=== PATIENT | male | born 1955 | race Caucasian/White ===

== ENCOUNTER 2016-09-30 12:57 | Inpatient (IN) ==
[2016-09-30 14:05] LABS: Basophils # 0.1 K/mcL (0.0-0.2); Basophils % 0.9 %; Eosinophils # 0.1 K/mcL (0.0-0.6); Eosinophils % 0.8 %; Hematocrit 49.1 % (37.5-50.1); Hemoglobin 16.1 g/dL (12.9-16.9); Immature Granulocytes % 0.1 % (0-4); Lymphocytes # 1.5 K/mcL (0.6-4.6); Lymphocytes % 19.1 %; Mean Corpuscular HGB Conc 32.8 g/dL (31.6-35.5); Mean Corpuscular Hemoglobin 28.9 pg (28.0-33.3); Mean Corpuscular Volume 88.2 fL (83.0-100.0); Mean Platelet Volume 10.3 fL (9.4-12.4); Monocytes # 0.4 K/mcL (0.0-1.3); Monocytes % 5.3 %; Neutrophils # 5.9 K/mcL (1.6-8.9); Platelet Count 215 K/mcL (140-400); Red Blood Count 5.57 M/mcL (4.19-5.50); Red Cell Distribution Width 12.7 % (11.5-14.5); Segmented Neutrophils % 73.8 %
[2016-09-30 14:08] LABS: INR 1.2; Prothrombin Time 12.5 Seconds (9.4-12.1)
[2016-09-30 14:11] LABS: Activated Partial Thrombo Time 37.5 Seconds (26.0-36.0)
[2016-09-30 14:15] LABS: BUN/Creatinine Ratio 13 (6-26); Blood Urea Nitrogen 12 mg/dL (8-26); Calcium 9.3 mg/dL (8.6-10.8); Carbon Dioxide 24 mEq/L (19-29); Chloride 104 mEq/L (98-109); Glucose 113 mg/dL (70-99); Osmolality,Calculated 287 (280-300); Potassium 4.4 mEq/L (3.5-4.5); Sodium 138 mEq/L (136-145); eGFR For African Americans > 60 (> 60); eGFR For Non-African Americans > 60 (> 60)
--- NOTE | 2016-09-30 14:53 | Emergency Department Note ---
Disposition Clinical Impression: NSTEMI (non-ST elevated myocardial infarction) Disposition: Admitted As Inpatient Referrals: NO,PCP [Primary Care Provider] - Forms: ED Satisfaction Letter Chest Pain HPI - General Chief Complaint: ED Chest Pain Stated Complaint: chest pain Time Seen by Provider: 09/30/16 14:43 Source: patient Limitations: no limitations Vital Signs Reviewed: Yes Nursing Notes Reviewed: Yes - History of Present Illness HPI Narrative: Patient presents for complaint of chest pain started last night. She describes pains pressure does not radiate. Patient was seen at outside hospital and he was told that he had an elevated troponin and they want him transferred to [facility]. Patient did not want to go the [facility] so he signed himself out and comes to facility for further evaluation. Patient is currently chest pain-free denies shortness of breath. Severity scale (1-10): 6 - Related Data Home Medications Medication Instructions Recorded Confirmed Aspirin [Lo-Dose Aspirin EC] 81 mg PO DAILY 07/07/16 07/07/16 [place]-3/Dha/Epa/Fish Oil [Fish Oil 2 each PO BID 07/07/16 07/07/16 1,000 mg Softgel] Previous Rx's Medication Instructions Recorded Omeprazole 20 mg PO DAILY #30 tablet. 07/08/16 Allergies Allergy/AdvReac Type Severity Reaction Status Date / Time No Known Allergies Allergy Verified 09/30/16 13:02 All systems ED: reviewed and negative except as stated. Chest Pain PMH - Past Medical History Medical history: Reports: coronary artery disease Psychiatric history: Reports: no psych history - Social History Smoking Status: Current every day smoker Alcohol use: Reports: none Drug use: Reports: none Physical Exam - General Limitations: no limitations General appearance: alert - Head Head exam: atraumatic, normocephalic, normal inspection - Eye Eye exam: Present: normal appearance, PERRL, EOMI - ENT ENT exam: normal exam, normal oropharynx, mucous membranes moist - Neck Neck exam: Present: normal inspection, full ROM, trachea midline - Chest Chest inspection: Present: normal inspection, symmetric chest wall rise - Respiratory Respiratory exam: Present: normal lung sounds bilaterally - Cardiovascular Cardiovascular exam: Present: regular rate, normal rhythm, normal heart sounds - Abdominal Exam Abdominal exam: Present: soft, Non-Tender. Absent: tenderness, distention, guarding, rebound, rigidity - Extremities Exam Extremities exam: Present: normal inspection, full ROM. Absent: tenderness, pedal edema - Expanded Lower Extremity Exam Hip/Pelvis exam: Present: normal inspection, full ROM - Back Exam Back exam: Present: normal inspection, full ROM. Absent: tenderness - Neurological Exam Neurological exam: Present: alert, oriented X3 - Psychiatric Psychiatric exam: Present: normal affect, normal mood - Skin Skin exam: Present: warm, dry, intact, normal color Course Vital Signs Temperature 97.5 F L 09/30/16 12:58 Pulse Rate 74 09/30/16 12:58 Respiratory Rate 18 09/30/16 12:58 Blood Pressure 138/92 09/30/16 12:58 O2 Sat by Pulse Oximetry 96 09/30/16 12:58 Temperature 97.5 F L 09/30/16 12:58 Pulse Rate 74 09/30/16 12:58 Respiratory Rate 18 09/30/16 12:58 Blood Pressure 138/92 09/30/16 12:58 O2 Sat by Pulse Oximetry 96 09/30/16 12:58 Oxygen Delivery Oxygen Delivery Room Air Chest Pain - Differential Diagnosis Likely: pneumothorax, st elevation myocardial infraction, chest pain - Lab Data Lab results reviewed: Yes I reviewed the patient's lab results. Result diagrams: 09/30/16 13:49 09/30/16 13:49 Lab Results 09/30/16 09/30/16 09/30/16 Range/Units 13:49 13:49 13:49 WBC 8.0 (4.3-11.1) K/mcL RBC 5.57 H (4.19-5.50) M/mcL Hgb 16.1 (12.9-16.9) g/dL Hct 49.1 (37.5-50.1) % MCV 88.2 (83.0-100.0) fL MCH 28.9 (28.0-33.3) pg MCHC 32.8 (31.6-35.5) g/dL RDW 12.7 (11.5-14.5) % Plt Count 215 (140-400) K/mcL MPV 10.3 (9.4-12.4) fL Immature Gran % 0.1 (0-4) % Seg Neutrophils % 73.8 % Lymphocytes % 19.1 % Monocytes % 5.3 % Eosinophils % 0.8 % Basophils % 0.9 % Neutrophils # 5.9 (1.6-8.9) K/mcL Lymphocytes # 1.5 (0.6-4.6) K/mcL Monocytes # 0.4 (0.0-1.3) K/mcL Eosinophils # 0.1 (0.0-0.6) K/mcL Basophils # 0.1 (0.0-0.2) K/mcL PT 12.5 H (9.4-12.1) Seconds INR 1.2 APTT 37.5 H (26.0-36.0) Seconds Sodium 138 (136-145) mEq/L Potassium 4.4 (3.5-4.5) mEq/L Chloride 104 (98-109) mEq/L Carbon Dioxide 24 (19-29) mEq/L BUN 12 (8-26) mg/dL Creatinine 0.89 (0.72-1.25) mg/dL Est GFR ( Amer) > 60 (> 60) Est GFR (Non-Af Amer) > 60 (> 60) BUN/Creatinine Ratio 13 (6-26) Glucose 113 H (70-99) mg/dL Calculated Osmolality 287 (280-300) Calcium 9.3 (8.6-10.8) mg/dL Troponin I (0-0.03) ng/mL 09/30/16 Range/Units 13:49 WBC (4.3-11.1) K/mcL RBC (4.19-5.50) M/mcL Hgb (12.9-16.9) g/dL Hct (37.5-50.1) % MCV (83.0-100.0) fL MCH (28.0-33.3) pg MCHC (31.6-35.5) g/dL RDW (11.5-14.5) % Plt Count (140-400) K/mcL MPV (9.4-12.4) fL Immature Gran % (0-4) % Seg Neutrophils % % Lymphocytes % % Monocytes % % Eosinophils % % Basophils % % Neutrophils # (1.6-8.9) K/mcL Lymphocytes # (0.6-4.6) K/mcL Monocytes # (0.0-1.3) K/mcL Eosinophils # (0.0-0.6) K/mcL Basophils # (0.0-0.2) K/mcL PT (9.4-12.1) Seconds INR APTT (26.0-36.0) Seconds Sodium (136-145) mEq/L Potassium (3.5-4.5) mEq/L Chloride (98-109) mEq/L Carbon Dioxide (19-29) mEq/L BUN (8-26) mg/dL Creatinine (0.72-1.25) mg/dL Est GFR ( Amer) (> 60) Est GFR (Non-Af Amer) (> 60) BUN/Creatinine Ratio (6-26) Glucose (70-99) mg/dL Calculated Osmolality (280-300) Calcium (8.6-10.8) mg/dL Troponin I 0.58 H* (0-0.03) ng/mL - EKG Data EKG attestation: Yes I reviewed and interpreted this EKG. EKG shows normal: sinus rhythm Rate: normal Rhythm: NSR Critical Care Time Total Critical Care Time: 30 Attestation: Critical care performed: Time is exclusive of separately billable procedures. Time includes: direct patient care, patient reassessment, coordination of patient care, interpretation of data (laboratory data, radiology data, and respiratory data), review of patient's medical records, medical consultation and documentation of patient care. Procedures included in critical care time: Procedures excluded from critical care time:
[2016-09-30] MEDS ORDERED: *HR* Enoxaparin 100 MG/ML SYRINGE SQ STA (15:07)
[2016-09-30] MEDS ORDERED: Ondansetron 4 MG/2 ML VIAL IVP PRN (17:39)
[2016-09-30] MEDS ORDERED: Naloxone 0.4 MG/ML INJ IVP PRN (17:39)
--- NOTE | 2016-09-30 20:26 | Internal Med History&Physical ---
<Diana Payton - Last Filed: 10/01/16 10:36> Date of Encounter: 10/01/16 Time of Encounter: 19:35 Assessment and Plan (1) NSTEMI (non-ST elevated myocardial infarction) Current visit: Yes Status: Acute Chest pain onset yesterday a.m prior to work, approx 0700. Pt took NTG sl which relieved pain for the rest of the day, even with intentional exertion. 8/10 chest heaviness without radiation awakened pt this a.m at 0300. Pain at that time was intermittent, lasting about 2 minutes, until at about 0600 it became constant and pt called EMS. He was at an outlying hospital and was told he would have to be transferred to [facility]. 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 He had taken his own ASA 81 mg at home and was given Lovenox 100mg subq prior to leaving other hospital. Troponin on arrival was 0.58ng/dl and EKG was NSR. He has been pain free since arrival. He has not been taking his anticoagulant due to cost and has been taking an ASA 81mg daily instead. Echo and stress both done in 06/2016; LVEF 60-65% and mild LV diastolic dysfunction. Continuous cardiac monitoring Consult cardiology Metoprolol 12.5mg po bid Lovenox 100mg/kg sq q12 h ASA 81mg po daily Simvastatin 20mg po qhs Morphine 2mg IV q 4h prn chest pain Load Plavix 300mg po if significant rise in Troponin or pt begins having pain per Dr Trimble. (2) Elevated troponin Current visit: Yes Status: Acute Initial troponin 0.58ng/dl. Will trend. (3) CAD (coronary artery disease) Current visit: No Status: Chronic Plan same as above Qualifiers: Coronary Disease-Associated Artery/Lesion type: pra[place] band artery [place] vs. transplanted heart: prairie band heart Associated angina: with stable angina Qualified Code(s): I25.118 - Atherosclerotic heart disease of prairie band coronary artery with other forms of angina pectoris (4) Chest pain Current visit: No Status: Acute Pt has been pain free since arrival. Plan as above. Qualifiers: Chest pain type: chest pain due to myocardial ischemia Ischemic chest pain type: stable angina pectoris Qualified Code(s): I20.8 - Other forms of angina pectoris (5) GERD (gastroesophageal reflux disease) Current visit: No Status: Chronic Pt states that he cannot afford to take medication and that he doesn't really like to take pills if he doesn't have to. He states that he has controlled his GERD symptoms with lifestyle modifications and diet. He does not overeat and does not eat after 7pm. Maalox 30mg po qhs heartburn Qualifiers: Esophagitis presence: esophagitis presence not specified Qualified Code(s) : K21.9 - Gastro-esophageal reflux disease without esophagitis (6) Tobacco abuse Current visit: Yes Status: Chronic Pt states that he is still smoking daily, approx 1 PPD for 20 years. He is not interested in a patch or smoking cessation education. Internal Medicine - H&P: HPI Chief complaint: elevated troponin NSTEMI Admitted From: Home Plans for Post Hospital Care: Home History of present illness: Mr. Huber is a 61 year old male with a history of NE, stents x 2, GERD, CAD who presented to [facility] in [place] with c/o intermittent chest pain for 1 day, worse since 299 today. The pain awakened him from sleep. Pt took his own ASA and NTG sl that relieved his pain. Pt was told that he would have to go to [facility] for cath, pt refused because he wanted to come here. He signed out AMA and came to this ER instead. His troponin was 0.58ng/dl and his EKG showed NSR. He was given Lovenox 100mg subq at [facility]. At onset of chest pain, he rated it 8/10 and described it as a pressure that was located equally on R and L sides of chest. He denies any SOB, diaphoresis, n/v, but did say the pain radiated to dominic jaws. He is pain free currently. Pt had a stress and echo in June. LEVF 60-65% and LV diastolic dysfunction. I spoke with Dr. Trimble who is aware of his condition and requested that I start ASA, Lovenox, a statin, and a beta margarita, per ACS treatment. He also suggests that if the patient has a significant increase in troponin or starts having pain again, to call him and load with Plavix 300mg po. Past Med Surg Social Fam HX - Past Medical History Medical history: coronary artery disease Psychiatric history: no psych history - Social History Smoking Status: Current every day smoker Smokeless Tobacco Status: No Alcohol use: none Drug use: none - Family History Father Adopted: No Family Member Ethnicity: Non- Living Status: Hx Family Cardiac Disorders: Yes Hx Family Respiratory Disorders: No Hx Family Cancer: No Hx Family GI Disorders: No Hx Family Endocrine Disorder: No Hx Family Neuromuscular Disorders: No Hx Family Neurologic Disorders: Yes Hx Family HEENT Disorders: No Hx Family Autoimmune Disorders: No Internal Medicine - H&P: Meds Aspirin [Lo-Dose Aspirin EC] 81 mg PO DAILY 07/07/16 [History] Clopidogrel Bisulfate [Plavix] 75 mg PO DAILY #90 tablet 10/01/16 [Rx] Allergies No Known Allergies Allergy (Verified 09/30/16 13:02) All Systems PM: A 10-system review of systems was performed and is negative for pertinent findings except as documented above in the HPI. - Constitutional Constitutional: no chills, no fatigue, no fever(s), no falls, no weakness - Cardiovascular Cardiovascular ROS IM: chest pain, no diaphoresis, no edema, no irregular heart rhythm, no lightheadedness, no palpitations - Respiratory Respiratory: no cough, no dyspnea, no dyspnea on exertion, no wheezing, no pain on inspiration, no chest congestion, no excessive phlegm production - Gastrointestinal Gastrointestinal: no diarrhea, no nausea, no vomiting - Musculoskeletal Musculoskeletal ROS IM: no muscle weakness, no myalgias, no numbness, no tingling - Constitutional Vitals: Temp Pulse Resp BP Pulse Ox 0 F L 94 20 142/97 95 09/30/16 17:06 09/30/16 18:02 09/30/16 18:02 09/30/16 18:02 09/30/16 18:02 General appearance: Present: cooperative, A&O X 3, pleasant, no acute distress, answers questions appropriately - ENT ENT exam: Present: mucous membranes dry - Neck Neck exam general surgery: Present: full ROM. Absent: lymphadenopathy, tenderness - Respiratory Respiratory exam: Present: CTAB. Absent: chest wall tenderness, decreased breath sounds, rales, rhonchi, wheezes - Cardiovascular Cardiovascular exam: Present: RRR, +S1, +S2. Absent: tachycardia - GI/Abdominal GI/Abdominal exam: Present: firm, normal bowel sounds. Absent: tenderness - Extremities Exam Extremities exam: Present: full ROM, normal capillary refill, normal inspection , warm, radial pulses palpable and symetrical. Absent: cyanotic, pedal edema, tenderness Additional comments: Pt has dominic +2 pedal pulses without pedal or ankle edema. - Neurological Exam Neurological exam: Present: alert, oriented X3, no focal deficits, strengths equal and symetr throughout Internal Med - H&P Results - Labs CBC & Chem 7: 10/01/16 05:48 10/01/16 05:48 - EKG Data Prior EKG available for review: no Interpretation IM: normal EKG EKG comments: 09/30/16 20:47 NSR rate 71 WI 166ms QRS 100ms QT/QTc 359/381ms <Fish Greer - Last Filed: 10/02/16 00:59> Internal Medicine - H&P: HPI History of present illness: Mr. Huber is a 61 year old male All Systems PM: A 10-system review of systems was performed and is negative for pertinent findings except as documented above in the HPI. - Constitutional Vitals: Temp Pulse Resp BP Pulse Ox 98 F 76 16 117/79 96 10/01/16 22:00 10/01/16 22:00 10/01/16 22:00 10/01/16 22:00 10/01/16 22:00 Internal Med - H&P Results - Labs CBC & Chem 7: 10/01/16 05:48 10/01/16 05:48 - Attending Attestation I examined this patient and my medical decision-making was reviewed with the Advanced Practice Provider. I agree with the documented findings, disposition and treatment plan as described except to the extent set forth below. The patient presented to the hospital with typical chest pain. Troponin was elevated. EKG showed no ST elevations. Cardiology was consulted. We will monitor the patient on telemetry. Trend troponin. We will keep him at nothing by mouth for cardiac catheterization.
[2016-09-30] MEDS ORDERED: *HR* Morphine 2 MG/ML SYRINGE IVP PRN (21:01)
[2016-09-30] MEDS ORDERED: Mag Hydrox/Al Hydrox/Simeth 30 ML UDC PO PRN (21:05)
[2016-10-01] MEDS ORDERED: *HR* Enoxaparin 100 MG/ML SYRINGE SQ SCH (00:01)
[2016-10-01] MEDS: Acetaminophen 325 MG TABLET PO PRN ×2 (04:27→10:59)
[2016-10-01 06:10] LABS: Basophils # 0.1 K/mcL (0.0-0.2); Eosinophils # 0.1 K/mcL (0.0-0.6); Eosinophils % 1.8 %; Hematocrit 45.3 % (37.5-50.1); Hemoglobin 15.1 g/dL (12.9-16.9); Immature Granulocytes % 0.3 % (0-4); Lymphocytes # 1.6 K/mcL (0.6-4.6); Lymphocytes % 21.4 %; Mean Corpuscular HGB Conc 33.3 g/dL (31.6-35.5); Mean Corpuscular Hemoglobin 29.8 pg (28.0-33.3); Mean Corpuscular Volume 89.5 fL (83.0-100.0); Mean Platelet Volume 10.7 fL (9.4-12.4); Monocytes # 0.6 K/mcL (0.0-1.3); Monocytes % 7.4 %; Neutrophils # 5.2 K/mcL (1.6-8.9); Platelet Count 182 K/mcL (140-400); Red Blood Count 5.06 M/mcL (4.19-5.50); Red Cell Distribution Width 12.7 % (11.5-14.5); Segmented Neutrophils % 68.1 %
[2016-10-01 06:29] LABS: BUN/Creatinine Ratio 17 (6-26); Blood Urea Nitrogen 16 mg/dL (8-26); Carbon Dioxide 23 mEq/L (19-29); Chloride 104 mEq/L (98-109); Chol/HDL Ratio 9.3 (0-4.9); Cholesterol 222 mg/dL (< 200); Glucose 103 mg/dL (70-99); HDL Cholesterol 24 mg/dL (40-59); LDL Cholesterol,Calculated 155 mg/dL (0-99); Magnesium 1.6 mg/dL (1.6-2.6); Osmolality,Calculated 285 (280-300); Potassium 4.3 mEq/L (3.5-4.5); Sodium 137 mEq/L (136-145); Triglycerides 215 mg/dL (< 150); eGFR For African Americans > 60 (> 60); eGFR For Non-African Americans > 60 (> 60)
[2016-10-01] MEDS: Aspirin 81 MG TAB.CHEW PO SCH ×2 (09:22→11:01)
[2016-10-01] MEDS ORDERED: Heparin 1,000 UNITS/500 mL NS 500 ML ONE (10:41)
[2016-10-01] MEDS ORDERED: *HR* Heparin 10,000 UNIT/10 ML VIAL ONE (10:41)
[2016-10-01] MEDS ORDERED: 0.9 % Sodium Chloride 2,000 ML ONE (10:41)
[2016-10-01] MEDS ORDERED: Nitroglycerin 1,000 MCG/10 ML VIAL IV ONE (10:43)
[2016-10-01] MEDS ORDERED: *HR* Midazolam HCl 2 MG/2 ML VIAL ONE (11:36)
[2016-10-01] MEDS ORDERED: *HR* FentaNYL (PF) 100 MCG/2 ML VIAL ONE (11:36)
--- NOTE | 2016-10-01 11:43 | Pre-Sedation Evaluation ---
Pre-sedation evaluation - Pre-sedation checklist Date of procedure: 10/01/16 Procedure: heart cath Recent Vitals: Last Vital Signs Temp 98.3 F 10/01/16 07:00 Pulse 64 10/01/16 07:00 Resp 16 10/01/16 07:00 BP 139/90 10/01/16 07:00 Pulse Ox 98 10/01/16 11:02 H&P (including ROS) documented in medical record: Yes Previous reaction to sedatives/anesthetics: No Dietary Status: No solid food in preceding 4 hrs and no liquid in preceding 2 hrs Dentition: No loose teeth or bridges Possible difficult airway: No ASA Classification *see protocol: CLASS II-Mild systemic disease Plan of Care: Pt appropriate candidate for procedure/moderate/conscious sedation , Risks/benefits of procedure/sedation discussed w/ patient/family, If not NPO; Risk of intake outweiged by necessity to perform procedure
--- NOTE | 2016-10-01 11:49 | Cardiology Consult Note ---
Date of Encounter: 10/01/16 Time of Encounter: 09:00 Assessment and Plan (1) Acute coronary syndrome Current Visit: Yes Status: Acute Per cardiology: -Patient with known history of CAD with multiple coronary stents. (IMMI) -Patient with chest pain and elevated troponins of 0.58 and 3.97 on 09/30/16, troponins 10/01/16 8.73. (MIMI) -ECG on admission to [facility] 09/30/[address] elevated in V3, V4, and V5. ECG with sinus bradycardia with T wave inversion. (MIMI) -Patient currently on asa, plavix, beta margarita, statin, and lovenox. (MIMI) -Patient currently chest pain free. Will apply nasal cannula oxygen. (MIMI) -Urgent Left heart cath. Discussed with patient risks versus benefit of left heart cath. Patient agreeable to cath. 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 ( MIMI) Discussion w patient/family: The assessment and plan as outlined above was discussed with the patient who expressed understanding and agreement. All questions were answered. Thank you for involving us in the care of your patient. Please call with any questions. Discussed and reviewed with . History of Present Illness Consult date: 09/30/16 Requesting physician: Diana Payton Consult reason: Chest pain, elevated troponin Chief complaint: chest pain History of present illness: Mr. Huber is a 61 year old male with a known history of CAD with multiple coronary stents. Patient states chest pain started on Thursday when he was driving to work. Patient states he went home and took a nitrogylcerin sublingual with no resolution of symptoms. Patient states pain went away on its own. On Thursday morning at 0300 patient was awaken from sleep with chest pain. Patient states it was aching in nature and would rate the pain at that time 8/ 10. Patient states at that time he took another sublingual nitroglycerin without resolution of symptoms. Patient states pain would get worse if he got up and walked around. Patient states this pain is the same as he has had in the past when hes had his previous coronary stents. Patient presented to [facility] and was recommended to stay, but patient signed out AMA to come to [facility]. Patient currently chest pain free. Patient had recent negative stress test and echocardiogram 06/2016. (MIMI) Past Med Surg Social Fam HX - Past Medical History Medical history: coronary artery disease Psychiatric history: no psych history - Social History Smoking Status: Current every day smoker Smokeless Tobacco Status: No Alcohol use: none Drug use: none - Family History Father Adopted: No Family Member Ethnicity: Non- Living Status: Hx Family Cardiac Disorders: Yes Hx Family Respiratory Disorders: No Hx Family Cancer: No Hx Family GI Disorders: No Hx Family Endocrine Disorder: No Hx Family Neuromuscular Disorders: No Hx Family Neurologic Disorders: Yes Hx Family HEENT Disorders: No Hx Family Autoimmune Disorders: No Medications and Allergies Aspirin [Lo-Dose Aspirin EC] 81 mg PO DAILY 07/07/16 [History] Allergies No Known Allergies Allergy (Verified 09/30/16 13:02) All Systems Review: A 10-system review of systems was performed and is negative for pertinent findings except as documented above in the HPI. - Cardiovascular Cardiovascular: chest pain at rest, chest pain with exertion Physical Examination Vital Signs, Last 4 Hours Pulse Ox 10/01/16 11:02 98 Vital Signs Temp Pulse Resp BP Pulse Ox 10/01/16 11:02 98 10/01/16 07:00 98.3 F 64 16 139/90 97 10/01/16 04:00 98.1 F 66 16 135/89 94 L 10/01/16 00:00 98.4 F 67 16 126/82 94 L 09/30/16 20:00 97.6 F 65 16 117/77 95 09/30/16 18:02 94 20 142/97 95 09/30/16 17:06 0 F L 18 121/82 09/30/16 12:58 97.5 F L 74 18 138/92 96 Intake and Output 09/30/16 10/01/16 10/01/16 23:59 07:59 15:59 Other: Weight 83.1 kg Patient Weight 10/01/16 23:59 Weight 83.1 kg General: Conversant, No Apparent Distress HEENT: Atraumatic, Normocephaly, Mucus Membranes Moist Neck: No JVD, Normal carotid pulses Cardiac: Reg Rate and Rhythm, Normal S1 and S2, No Murmur Lungs: Normal Breath Sounds, No Wheeze, Rales, Rhonchi Neuro: Alert and responsive, No focal deficits noted Abdomen: Soft, Non-Tender Skin: No rashes noted on visualized skin Musculoskeletal: No Chest Wall Tenderness Extremities: No Clubbing, No Cyanosis, No Edema, Normal Pulses Results 10/01/16 05:48 10/01/16 05:48 - Imaging and Cardiology Chest Xray: report reviewed Cardiac cath: pending - EKG Interpretation EKG results cardiology: personally reviewed, normal ECG, sinus rhythm, other ( ECG from 10/01/16 with sinus bradycardia with T wave inversion. Heart rate 57. ECG reviewed from admission to [facility] with ST elevated in leads V3, V4, V5. Telemtry reviewed with average heart rate 63, sinus rhythm. One triplet PVC noted. Occasional PVCs and PACs. Minimum heart rate 58 noted at 2333.) Consult Discharge Plan - Plan Referrals: NO,PCP [Primary Care Provider] -
[2016-10-01] MEDS ORDERED: *HR* Bivalirudin 250 MG VIAL IVC ONE (11:52)
[2016-10-01] MEDS ORDERED: Nitroglycerin Spray 4.9 GM BOTTLE ONE (12:27)
[2016-10-01] MEDS ORDERED: *HR* Morphine 2 MG/ML SYRINGE ONE (12:30)
[2016-10-01] MEDS ORDERED: Nitroglycerin 0.4 MG TAB.SUBL SL PRN (12:33)
[2016-10-01] MEDS ORDERED: Nitroglycerin 25 MG/250 ML INFUS..BTL IVC SCH (12:45)
[2016-10-01] MEDS ORDERED: 0.9 % Sodium Chloride 1,000 ML IVC SCH (12:45)
--- NOTE | 2016-10-01 12:54 | Invasive Diagnostic Lab ---
Name: Juan José Huber Date of Study: 10/01/2016 Date: 1955 Ht: 185.0 cm /72.8 in Medical Record#: [id number] Age: 61 Wt: 83. kg / 182.98 lb Account/Order#: [id number] Gender: Male BSA: 2.07 Order #: [id number] Fluoro Dose: 1393 mGy BMI: 24.25 Procedure Physician: Nehemias Harrington MD Referring MD: Referring MD: Procedures Performed: LEFT HEART CATH Stent w/ PTCA Single Major Vessel Stent w/ PTCA Single Major Vessel Indications: Non-Stemi Impressions: There is severe three vessel coronary artery disease. The left ventricle is normal and has normal contractility EF 50% Stent placed from a prior procedure in the Proximal LAD is is patent. There is a previous stent in 1st Marginal with severe in-stent stenosis that was intervened on. Patient had successful PTCA/Drug-Eluting Stent placement in the mid LAD. Patient had successful PTCA/Drug-Eluting Stent placement in the OM. Recommendations: Optimal medical therapy of patient's disease. Aggressive risk factor modification. Patient being referred for cardiac rehab. History/Risk Factors: CAD GERD Current/Recent Smoker Prior MT Previous PCI Procedure Access obtained in the right Femoral artery by percutaneous puncture Patient had successful PTCA/Drug-Eluting Stent placement in the mid LAD. Patient had successful PTCA/Drug-Eluting Stent placement in the OM. Complications: None Contrast: Isovue 262ml Closure Device: Perclose ProGlide Hemodynamics: Pressures Site Systolic/ A Wave Diastolic/ V Wave End Diastolic/ Mean HR LV 109 -5 6 57 LV 135 47 77 66 AO 99 70 84 53 AO 116 65 86 62 AO 106 60 80 58 AO 107 60 79 56 AO 118 68 89 58 AO 140 77 103 56 LV Ventriculography Ejection Method: LV Gram Ejection Fraction: 50% Wall Motion: AZAR Anterobasal Normal Anterolateral Normal Apical: Severe Hypokinesis Inferoapical Normal Inferobasal Normal Coronary Dominance: right Lesion Findings/Interventions * Left Main Coronary Artery The LMCA is angiographically free of disease. * Left Anterior Descending There is a 24 mm long, 90% stenosis in the Mid LAD. The lesion has a LIONEL flow of 3 and has thrombus present. An intervention was performed on the Mid LAD with a final stenosis of 0%. There were no lesion complications. The final LIONEL flow was 3. * Circumflex There is a 85% stenosis in the Mid Circumflex. The lesion has a LIONEL flow of 3. There is a 28 mm long, 95% in-stent restenosis in the 1st Marginal. The lesion has a LIONEL flow of 3. An intervention was performed on the 1st Marginal with a final stenosis of 0%. There were no lesion complications. The final LIONEL flow was 3. * Right Coronary Artery There is a 100% stenosis in the Proximal RCA. The lesion has a LIONEL flow of 0 and has collaterals which feed from left to right. Interventional Device(s) Vessel Segment Type Name Diameter (mm) Length (mm) Mid LAD balloon Emerge Monorail 2 12 Mid LAD drug-eluting stent Synergy 2.5 24 Mid LAD balloon NC Emerge 2.75 15 1st Marginal balloon Emerge Monorail 3 15 1st Marginal drug-eluting stent Synergy 3.5 28 1st Marginal balloon NC Emerge 3.5 20 Updated by RT Jossue (R) on 10/01/2016 12:48:16 PM Nehemias Harrington MD electronically signed on 10/01/2016 12:50:40 PM with status of Final
--- NOTE | 2016-10-01 12:55 | Invasive Diagnostic Lab Proc ---
Name: Juan José Huber Date of Study: 10/01/2016 Date: 1955 Ht: 72.8in Medical Record#: [id number] Age: 61 Wt: 182.98lb Gender: Male BSA: 2.07 Order #: [id number] BMI: 24.25 Physicians Procedure Physician: Nehemias Harrington MD Referring MD: Referring MD: Staff Name Position Time In Ofelia Rodriguez RT (R) Monitor 11:32 AM Enrico Elizabeth RT (R) Scrub 11:32 AM Justine Daniels RN Knot Bumper 11:32 AM Indications Indication Non-Stemi Procedures Performed Procedure L HRT ARTERY/VENTRICLE ANGIO PRQ CARD SHERRI STENT W/ANGIO 1 VSL PRQ CARD SHERRI STENT W/ANGIO 1 VSL Pre-Procedure Checklist Informed consent is complete signed and on chart. H\\T\\P is on chart. ID band is on and ID verified with patient. Patient NPO for procedure The procedure was described for the patient and questions were answered. Blood Pressure: 139/90 ECG is on chart. Rhythm: NSR Plan of Care Patient will tolerate the procedure without complications. Adequate level of comfort will be maintained. Hemodynamics will remain stable Patient will recover from procedure without complications. Respiratory function will be maintained. Cardiac rhythm will remain stable. Patient temperature will be maintained. Patient and/or family have verbalized understanding of the procedure. Patient Education Chief Complaint/Reason for Test: Cardiac Cath Developmental Category: Adult (18-64 years) Developmentally Appropriate for Age: Yes Learning Barriers: None Education Needs: Procedure Education Method: Verbal Information Taught: Cardiac Cath Educational Evaluation: Able to repeat information Intravenous Access Time IV Size Location DC'd Fluid/Drip Rate Units RN 11:41 AM 20g 1 /" Patent On Arrival Lt Arm 0.9NaCl ml/hr Allergies NKA No Known Allergies Vital Signs Time BP (mmHg) HR (bpm) O2 Sat. RR (bpm) LOC 11:42 AM 139 / 90 64 97 % 16 5 = Fully awake and oriented or at pre-proc level 11:48 AM / % 4 = Oriented but drowsy 11:48 AM / % 4 = Oriented but drowsy 12:03 PM / % 4 = Oriented but drowsy 12:18 PM / % 4 = Oriented but drowsy 11:39 AM 129 / 85 56 95 % 11 11:44 AM 118 / 84 63 96 % 16 11:49 AM 116 / 79 54 92 % 20 11:54 AM 120 / 75 55 92 % 17 11:59 AM 127 / 80 56 92 % 17 12:04 PM 121 / 79 55 93 % 28 12:09 PM 131 / 81 55 94 % 13 12:14 PM 131 / 83 53 95 % 18 12:19 PM 134 / 85 57 94 % 11 12:24 PM 168 / 100 76 92 % 9 12:29 PM 153 / 94 57 90 % 17 12:34 PM 147 / 92 59 93 % 5 12:39 PM 138 / 92 % Procedural Medications Time Medication Dose Units Method Given By 11:40 AM Oxygen 2 L/min nasal cannula JeremiahJustine garcía RN 11:40 AM Versed 1 mg Intravenous Jeremiah, Justine CÁRDENAS 11:40 AM Fentanyl 50 mcg Intravenous Justine Daniels RN 11:49 AM Lidocaine 2% 18 ml Subcutaneous Nehemias Harrington MD 11:59 AM Oxygen 4 L/min nasal cannula Justine Daniels RN 12:00 PM Nitroglycerin 200 mcg Intracoronary Nehemias Harrington MD 12:03 PM Angiomax 0.75mg/kg bolus: 13 ml Intravenous JeremiahJustine garcía RN 12:03 PM Angiomax 1.75mg/kg/hr: 30 ml Intravenous Morris ChapelJustine garcía RN 12:21 PM Versed 1 mg Intravenous JeremiahJustine garcía RN 12:21 PM Fentanyl 50 mcg Intravenous JeremiahJustine garcía RN 12:24 PM Nitroglycerin 200 mcg Intracoronary Nehemias Harrington MD 12:30 PM Nitroglycerin 800 mcg Sublingual [place], Justine CÁRDENAS 12:30 PM Plavix 225 mg Orally Justine Daniels RN 12:31 PM Morphine 2 mg Intravenous JeremiahJustine garcía RN ASA Classification: CLASS II- Mild systemic disease (i.e. well-controlled diabetes, hypertension, asthma, cigarette smoking) Jeovanny Score Preprocedure Postprocedure Activity 2- Moves 4 extremities sustained head lift Activity 2- Moves 4 extremities sustained head lift Circulation 2- SBP +/= 20 points of pre-anesthetic level Circulation 2- SBP +/= 20 points of pre-anesthetic level Consciousness 2- Awake and alert oriented x 3 Consciousness 2- Awake and alert oriented x 3 O2 Saturation 2- Able to maintain O2 satruation of 92% on room air O2 Saturation 2- Able to maintain O2 satruation of 92% on room air Respiratory 2- Able to deep breathe and cough well Respiratory 2- Able to deep breathe and cough well Total Score 10 Total Score 10 Contrast Agent: Isovue Diagnostic Contrast: 262 ml Total Contrast: 262 ml Fluoro Dose: 1393 mGy Procedure Log Time Note Enter By 11:32 AM Elizabeth Weston (R) Position: Scrub Time in: :32 twilson 11:32 AM Physician arrived : twilson 11:32 AM Meet and greet completed twilson 11:32 AM Sign in performed according to hospital policy. twilson 11:32 AM Procedure start : twilson 11:32 AM Justine Daniels RN Position: Knot Bumper Time in: :32 twilson 11:32 AM Pt arrived to label stamper 2 at 11:32 twilson 11:32 AM Ofelia Rodriguez (R) Position: Monitor Time in: :32 twilson 11:35 AM Hair removed from procedure site in procedure lab using clippers. Bilateral groin prepped with Chloraprep by Ofelia Rodriguez (R) then patient draped. Skin intact. twilson 11:38 AM Vitals capture started with the following parameters, Patient=Adult, Interval=5 min, Initial Ipwvwexx=977 mmHg, Deflation Rate=5 mmHg, Cuff placed on Left Leg 11:38 AM CathStat 11:39 AM HR=56 bpm, WEHA=947/85 mmhg, SpO2=95.0 %, Resp=11 B/min 11:40 AM Time: 11:40 Oxygen on at 2 L/min per nasal cannula by Justine Daniels RN twilson 11:40 AM Time: 11:40 Versed 1 mg Intravenous Given by Justine Daniels RN twilson 11:40 AM Time: 11:40 Fentanyl 50 mcg Intravenous Given by Justine Daniels RN twilson 11:44 AM HR=63 bpm, YGLU=405/84 mmhg, SpO2=96.0 %, Resp=16 B/min, Comment=sr 11:45 AM Patient charges- Angio tray pack, Navilyst 3mm J, Pulse Oximetry and ACIST tubing and transducer twilson 11:45 AM Case Delayed no twilson 11:45 AM Pressure channel 1 zeroed. 11:46 AM ASA Class CLASS II- Mild systemic disease (i.e. well-controlled diabetes, hypertension, asthma, cigarette smoking) twilson 11:48 AM Time: 11:48 Patient comfortable and pain free: Yes twilson 11:48 AM Time: 11:48LOC: 4 = Oriented but drowsy twilson 11:48 AM Time out performed according to hospital policy twilson 11:48 AM Pressure channel 1 zeroed. 11:49 AM HR=54 bpm, HTNE=032/79 mmhg, SpO2=92.0 %, Resp=20 B/min, Comment=sr 11:49 AM Pressure channel 1 zeroed. 11:49 AM Recorded ECG: HR=57 Condition=Condition 1 11:49 AM Time: 11:49 18 ml Lidocaine 2% to right groin Subcutaneous Given by Nehemias Harrington MD twilson 11:50 AM Access obtained by percutaneous puncture. 6Fr 10cm Terumo [place] sheath placed in right Femoral artery. [id number] twilson 11:50 AM 5Fr Pigtail catheter inserted over the wire DN twilson 11:51 AM Pressure channel 1 zero failed. 11:51 AM Pressure channel 1 zeroed. 11:51 AM Recorded Pressure: LV, HR=57, Condition=Condition 1 (Left Ventricle) LV 109/-5/6 11:51 AM Catheter selectively placed in left ventricle twilson 11:51 AM Recorded Pressure: LV, Ao, HR=58, Condition=Condition 1 (Left Ventricle) LV 135/47/77, (Aorta) Ao 99/70/84 11:51 AM Wire removed, intact. twilson 11:52 AM Bolus angiogram of left Ventricle complete: 10 ml/sec for a total of 30 mls twilson 11:52 AM Wire reinserted. twilson 11:52 AM Catheter removed twilson 11:52 AM 5Fr FR 4 catheter inserted over the wire DNC twilson 11:53 AM Recorded Pressure: Ao, HR=62, Condition=Condition 1 (Aorta) Ao 116/65/86 11:53 AM RCA angiography performed in multiple views. twilson 11:53 AM Wire reinserted. twilson 11:54 AM HR=55 bpm, AFBV=487/75 mmhg, SpO2=92.0 %, Resp=17 B/min 11:54 AM Lesion found in Proximal RCA. Pre Stenosis: 100 Pre LIONEL Flow: 0: No Flow/No perfusion twilson 11:54 AM Right Coronary, Right Posterior Descending Arteries with Right Posterolateral and Acute Marginal branches with 100 % stenosis. If graft is supplying this area, 0 % stenosis twilson 11:54 AM Catheter removed. twilson 11:54 AM 5Fr FL 4 catheter inserted over the wire [facility] twilson 11:55 AM Wire removed, intact. twilson 11:57 AM Recorded Pressure: Ao, HR=58, Condition=Condition 1 (Aorta) Ao 106/60/80 11:57 AM LCA angiography performed in multiple views. twilson 11:58 AM Recorded Pressure: Ao, HR=56, Condition=Condition 1 (Aorta) Ao 107/60/79 11:58 AM Lesion found in Mid LAD. Pre Stenosis: 90 Pre LIONEL Flow: 3: Complete and Brisk Flow/Perfusion twilson 11:58 AM Coronary Dominance: right twilson 11:59 AM HR=56 bpm, MNFN=473/80 mmhg, SpO2=92.0 %, Resp=17 B/min 11:59 AM Time: 11:59 Oxygen on at 4 L/min per nasal cannula by Justine Daniels RN twilson 11:59 AM Mid/Distal Left Anterior Descending Coronary Artery and diagonal branches with 90% stenosis. If graft is supplying this area, 0 % stenosis twilson 12:00 PM Lesion found in Mid Circumflex. Pre Stenosis: 85 Pre LIONEL Flow: 3: Complete and Brisk Flow/Perfusion twilson 12:00 PM Time: 12:00 Nitroglycerin 200 mcg Intracoronary Given by Nehemias Harrington MD twilson 12:03 PM Time: 11:48LOC: 4 = Oriented but drowsy twilson 12:03 PM Time: 11:48 Patient comfortable and pain free: Yes twilson 12:03 PM Time: 12:03 Angiomax 0.75mg/kg bolus: 13 ml Intravenous Given by Justine Daniels RN Sethi pump twilson 12:03 PM Time: 12:03 Angiomax 1.75mg/kg/hr: 30 ml Intravenous Given by Justine Daniels RN Sethi pump twilson 12:04 PM HR=55 bpm, TQCN=133/79 mmhg, SpO2=93.0 %, Resp=28 B/min 12:05 PM catheter removed intact. twilson 12:05 PM Inflation device was opened. twilson 12:05 PM 6Fr XB LAD 3.5 Cordis guide catheter was used to cannulate the PCI vessel successfully. reused? No twilson 12:05 PM .014 Prowater 180cm guide wire across target lesion- successful. reused? No twilson 12:06 PM 2.0 mm x 12 mm Emerge Monorail balloon across target lesion- successful. reused? No twilson 12:06 PM Balloon inflated @ 10 pao for 7 seconds twilson 12:07 PM Balloon inflated @ 18 pao for 9 seconds twilson 12:07 PM Balloon inflated @ 18 pao for 7 seconds twilson 12:09 PM HR=55 bpm, QJUS=262/81 mmhg, SpO2=94.0 %, Resp=13 B/min, Comment=sr 12:10 PM Balloon catheter removed intact. twilson 12:10 PM 2.5mm x 24mm Synergy drug-eluting stent across target lesion- successful Lot #[id number] twilson 12:11 PM Stent deployed @ 16 pao for 10 seconds twilson 12:14 PM HR=53 bpm, YYKG=099/83 mmhg, SpO2=95.0 %, Resp=18 B/min 12:14 PM Stent delivery system removed intact. twilson 12:14 PM 2.75 mm x 15mm NC Emerge balloon across target lesion- successful. reused? No twilson 12:14 PM Balloon inflated @ 14 pao for 7 seconds twilson 12:15 PM Balloon inflated @ 20 pao for 6 seconds twilson 12:16 PM Recorded Pressure: Ao, HR=58, Condition=Condition 1 (Aorta) Ao 118/68/89 12:16 PM Balloon catheter removed intact. twilson 12:17 PM 3.0 mm x 15 mm Emerge Monorail balloon across target lesion- successful. reused? No twilson 12:18 PM Time: 12:03 Patient comfortable and pain free: Yes twilson 12:18 PM Time: 12:03LOC: 4 = Oriented but drowsy twilson 12:19 PM HR=57 bpm, ZUVI=553/85 mmhg, SpO2=94.0 %, Resp=11 B/min 12:19 PM Balloon inflated @ 10 pao for 10 seconds twilson 12:19 PM Balloon inflated @ 10 pao for 10 seconds twilson 12:20 PM Balloon catheter removed intact. twilson 12:21 PM 3.5mm x 28mm Synergy drug-eluting stent across target lesion- successful Lot #[id number] twilson 12:21 PM Stent deployed @ 18 pao for 10 seconds twilson 12: PM Time: 12: Versed 1 mg Intravenous Given by Justine Daniels RN [facility] 12: PM Time: 12: Fentanyl 50 mcg Intravenous Given by Justine Daniels RN [facility] 12: PM Recorded Pressure: Ao, HR=56, Condition=Condition 1 (Aorta) Ao 140/77/103 12: PM 3.5 mm x 20mm NC Emerge balloon across target lesion- successful. reused? No twilson 12:24 PM Balloon inflated @ 16 pao for 13 seconds twilson 12: PM Balloon inflated @ 18 pao for 6 seconds twilson 12: PM Time: 12:24 Nitroglycerin 200 mcg Intracoronary Given by Nehemias Harrington MD [facility] 12:24 PM HR=76 bpm, FATW=004/100 mmhg, SpO2=92.0 %, Resp=9 B/min 12:25 PM Lesion found in 1st Marginal. Pre Stenosis: 95 Pre LIONEL Flow: 3: Complete and Brisk Flow/Perfusion twilson 12:25 PM Circumflex, Obtuse Marginal, Left Posterior Descending, and Left Posterolateral Coronary Arteries with 95 % stenosis. If graft is supplying this area, 0 % stenosis twilson 12:25 PM Balloon catheter removed intact. twilson 12:25 PM Guide wire removed intact. twilson 12:25 PM Guide catheter removed intact. twilson 12:26 PM Bolus angiogram of right Femoral complete: 4 ml/sec for a total of 7 mls [facility] 12:27 PM Procedure completed at 12:27 [facility] 12:27 PM Sign out completed: Radiation Dose 1392.89 mGy Fluoro Time: 7.2 Isovue 370 - 200ml contrast 262 ml given by Nehemias Harrington MD. Complications: NoneCardiac Rehab Consult needed: YesConfirmed administered medications: Yes twilson 12:29 PM HR=57 bpm, BAEA=131/94 mmhg, SpO2=90.0 %, Resp=17 B/min 12:30 PM Time: 12:30 Nitroglycerin 800 mcg Sublingual Given by Justine Daniels RN [facility] 12:30 PM Time: 12:30 Plavix 225 mg Orally Given by Justine Daniels RN [facility] 12:30 PM Isovue 370 - 500ml,1 Bottle(s) used. twilson 12:31 PM Time: 12:31 Morphine 2 mg Intravenous Given by uJstine Daniels RN twilson 12:31 PM Angiomax to run until complete. twilson 12:31 PM Arterial sheath pulled, Perclose closure device used and was Successful S/N. twilson 12:32 PM Post ECG NSR twilson 12:32 PM Post Blood Pressure 153/94 twilson 12:32 PM 12:32 Post Pulses Bilateral DP \\T\\ PT 2+ twilson 12:32 PM 12:32 Post Pulses Bilateral radial 2+ twilson 12:32 PM Information taught Cardiac Cath, PCI, and Perclose twilson 12:32 PM Education needs Procedure, Plan of Care, and Safe \\T\\ Effective Use of Medications twilson 12:32 PM Learning barriers :None twilson 12:32 PM Education Methods Verbal twilson 12:32 PM Education evaluation Able to repeat information twilson 12:32 PM Site status No bleeding/hematoma - Rt Groin as reported by Elizabeth Weston RT (R) at 12:32 twilson 12:32 PM Opsite applied twilson 12:32 PM Plavix, Effient or Brilinta given Yes twilson 12:33 PM Delay to floor No twilson 12:33 PM Time: 12:18 Patient comfortable and pain free: Yes twilson 12:33 PM Time: 12:18LOC: 4 = Oriented but drowsy twilson 12:34 PM HR=59 bpm, IYXH=050/92 mmhg, SpO2=93.0 %, Resp=5 B/min, Comment=sr 12:38 PM Family placed in consult room. twilson 12:38 PM Site status No bleeding/hematoma - Rt Groin as reported by Elizabeth Weston RT (R) at 12:38 twilson 12:39 PM IPOL=781/92 mmhg, Comment=sr 12:44 PM Report given to RN Pt taken to 2NE Room #32. 12:44 twilson 12:44 PM Patient out of room: 12:44 twilson 12:45 PM Patient reports 5/10 pain. Coming down from 8/10. twilson Complications Complication None Hemodynamics Pressures Site Systolic/A Wave Diastolic/V Wave Mean LV 109 -5 6 LV 135 47 77 AO 99 70 84 AO 116 65 86 AO 106 60 80 AO 107 60 79 AO 118 68 89 AO 140 77 103 Post Procedure Information Blood Pressure: 153/94 mmHg Rhythm: NSR Post procedural instructions were given Closure Device Time Device Success/Fail 10/01/2016 12:33:00 PM Perclose ProGlide Successful Site Checks Time Location Status Staff Sheath In? Note 12:32 PM Rt Groin No bleeding/hematoma Elizabeth Weston RT (R) 12:38 PM Rt Groin No bleeding/hematoma Elizabeth Weston RT (R) Pulses Time Site Pre-Procedure Post-Procedure Note 10/01/2016 11:42:00 AM Bilateral DP 2+ 10/01/2016 11:42:00 AM Bilateral radial 2+ 12:32:00 PM Bilateral DP \\T\\ PT 2+ 12:32:00 PM Bilateral radial 2+ Updated by Ofelia Rodriguez RT (R) on 10/01/2016 12:48:48 PM electronically signed on 10/01/2016 12:49:36 PM with status of Final
--- NOTE | 2016-10-01 14:22 | Internal Med Progress Note ---
<Grant Garcia - Last Filed: 10/01/16 14:17> Date of Encounter: 10/01/16 Time of Encounter: 14:17 - Assessment and plan (1) Acute coronary syndrome Current Visit: Yes Status: Acute Assessment and plan: 85 y/o Male hx of CAD, x2 stents admitted for ACS. -EKG shows st elevations on V3 V4,V5 on 09/30/16 and t wave inversions on . -Troponin 0.58, 3.97, 8.73 -07/02 echo shows LV EF of 65% with no wall motion abnormalities. 07/02 Stress test was negative for ischemia -He was initially treated with aspirin, plavix, lovenox, statin, O2 supplementation -patient was taken for urgent [facility] where two drug eluding stents were placed in mid LAD and OM. Patient had no complications during the procedure. -continue aspirin, plavix, lovenox, bblocker, statin. -appreciate cardiology input (2) DVT prophylaxis Current Visit: Yes Status: Acute Assessment and plan: Patient on lovenox (3) Tobacco abuse Current Visit: Yes Status: Chronic Assessment and plan: Patient has 20Pack year history. He understands the risks of smoking and benefits of cessation. He is not interested in quitting today. (4) CAD (coronary artery disease) Current Visit: No Status: Chronic Assessment and plan: As stated above he has hx of CAD with x2 stents. We will continue to treat patient with aspirin, plavix, statin, lovenox, and bblocker. Qualifiers: Coronary Disease-Associated Artery/Lesion type: pam[place]key artery [place] vs. transplanted heart: [place]key heart Associated angina: with stable angina Qualified Code(s): I25.118 - Atherosclerotic heart disease of [place] coronary artery with other forms of angina pectoris (5) GERD (gastroesophageal reflux disease) Current Visit: No Status: Chronic Assessment and plan: Patient states he has hx of GERD but cannot afford medications. continue Maalox. Qualifiers: Esophagitis presence: esophagitis presence not specified Qualified Code(s) : K21.9 - Gastro-esophageal reflux disease without esophagitis - Subjective Interval history: Patient is a 61-year-old male with history of coronary artery disease and multiple stents. Patient states that he only takes aspirin at home and he stopped taking Plavix because he could not afford it. He started having pain last Thursday did not resolve with sublingual nitroglycerin. However pain went away on its own and returned Thursday. Patient says his pain is very similar to his previous stenosis events. During my visit today patient was chest pain- free. His vitals are stable. His troponin continued to be elevated with last being 8.73. Cardiology assessed the patient and said patient needs urgent left heart catheter as he had ST elevations in V3 and V4 and V5 on EKG from 2016 and new T-wave inversions on EKG done today. - Constitutional Vitals: Temp Pulse Resp BP Pulse Ox 98.3 F 53 18 126/85 95 10/01/16 07:00 10/01/16 13:18 10/01/16 13:18 10/01/16 13:18 10/01/16 13:18 General appearance: Present: cooperative, A&O X 3, pleasant, no acute distress, answers questions appropriately - Head Head exam: Present: atraumatic, normocephalic - Eye Eye exam: Present: PERRL, conjuntiva pink, sclera anicteric - Neck Neck exam general surgery: Present: supple, trachea midline. Absent: lymphadenopathy - Respiratory Respiratory exam: Present: CTAB. Absent: accessory muscle use, rales, rhonchi, wheezes - Cardiovascular Cardiovascular exam: Present: RRR, +S1, +S2. Absent: diastolic murmur, gallop, rubs, systolic murmur - GI/Abdominal GI/Abdominal exam: Present: normal bowel sounds, soft, no peritoneal signs. Absent: distended, tenderness - Extremities Exam Extremities exam: Present: warm, radial pulses palpable and symetrical. Absent : calf tenderness, cyanotic, pedal edema - Neurological Exam Neurological exam: Present: CN II-XII intact, oriented X3, no focal deficits. Absent: pronater drift, facial droop, speech deficit - Skin Skin exam: Present: dry, intact Internal Medicine: Result - Labs CBC & Chem 7: 10/01/16 05:48 10/01/16 05:48 - ABG Interpretation ABG results: PT/INR, D-dimer PT 12.5 Seconds (9.4-12.1) H 09/30/16 13:49 Consult Discharge Plan - Plan Referrals: NO,PCP [Primary Care Provider] - Prescriptions: Clopidogrel Bisulfate [Plavix] 75 mg PO DAILY #90 tablet <Janes West - Last Filed: 10/01/16 19:10> - Constitutional Vitals: Temp Pulse Resp BP Pulse Ox 98.3 F 61 18 127/84 95 10/01/16 07:00 10/01/16 15:18 10/01/16 15:18 10/01/16 15:18 10/01/16 15:18 Internal Medicine: Result - Labs CBC & Chem 7: 10/01/16 05:48 10/01/16 05:48 - ABG Interpretation ABG results: PT/INR, D-dimer PT 12.5 Seconds (9.4-12.1) H 09/30/16 13:49 - Attending Attestation I examined this patient and my medical decision-making was reviewed with the Resident Physician on 10/01/16. I agree with the documented findings, disposition and treatment plan as described except to the extent set forth below. Mr. Huber is currently admitted for acute NSTEMI. He is high risk due to potential of further cardiac complications. Mr. Huber had cath with 2 stents today. Feels OK right now. No CP or SOB. Exam Alert. Comfortable Heart reg No wheeze I/P 1. Acute NSTEMI 2. ACS 3. CAD s/p stents 4. Tobacco abuse Further diagnoses and plan as above.
[2016-10-01] MEDS ORDERED: *HR* Enoxaparin 80 MG/0.8 ML SYRINGE SQ SCH (18:00)
[2016-10-02 06:05] LABS: Basophils # 0.1 K/mcL (0.0-0.2); Basophils % 0.9 %; Eosinophils # 0.1 K/mcL (0.0-0.6); Eosinophils % 1.7 %; Hematocrit 42.8 % (37.5-50.1); Hemoglobin 13.9 g/dL (12.9-16.9); Immature Granulocytes % 0.2 % (0-4); Lymphocytes # 1.9 K/mcL (0.6-4.6); Lymphocytes % 23.7 %; Mean Corpuscular HGB Conc 32.5 g/dL (31.6-35.5); Mean Corpuscular Hemoglobin 28.8 pg (28.0-33.3); Mean Corpuscular Volume 88.6 fL (83.0-100.0); Mean Platelet Volume 10.4 fL (9.4-12.4); Monocytes # 0.6 K/mcL (0.0-1.3); Monocytes % 7.7 %; Neutrophils # 5.4 K/mcL (1.6-8.9); Platelet Count 177 K/mcL (140-400); Red Blood Count 4.83 M/mcL (4.19-5.50); Red Cell Distribution Width 12.5 % (11.5-14.5); Segmented Neutrophils % 65.8 %
[2016-10-02 06:13] LABS: BUN/Creatinine Ratio 15 (6-26); Blood Urea Nitrogen 13 mg/dL (8-26); Calcium 8.5 mg/dL (8.6-10.8); Carbon Dioxide 23 mEq/L (19-29); Chloride 104 mEq/L (98-109); Glucose 92 mg/dL (70-99); Osmolality,Calculated 280 (280-300); Potassium 4.1 mEq/L (3.5-4.5); Sodium 135 mEq/L (136-145); eGFR For African Americans > 60 (> 60); eGFR For Non-African Americans > 60 (> 60)
[2016-10-02] MEDS ORDERED: *HR* Enoxaparin 30 MG/0.3 ML SYRINGE SQ SCH (07:00)
[2016-10-02 07:39] VITALS: BP 111/75
[2016-10-02] MEDS: Aspirin 81 MG TAB.CHEW PO SCH (09:32)
--- NOTE | 2016-10-02 10:13 | Cardiology Progress Note ---
Date of Encounter: 10/02/16 Time of Encounter: 09:15 Assessment and Plan (1) Acute coronary syndrome Current Visit: Yes Status: Acute Per cardiology: -Patient with known history of CAD with multiple coronary stents. (MIMI) -Patient with chest pain and elevated troponins of 0.58 and 3.97 on 09/30/16, troponins 10/01/16 8.73. (MIMI) -ECG on admission to [facility] 09/30/[address] elevated in V3, V4, and V5. ECG with sinus bradycardia with T wave inversion. (MIMI) -Patient currently on asa, plavix, beta margarita, statin, and lovenox. (MIMI) -Patient currently chest pain free. (MIMI) -Patient status post cardiac catheterization on 10/01/16 which showed EF 50%, 90 % stenosis in mid LAD which was stented with a drug eluding stent, 85% stenosis in circumflex, 95% in-stent restenosis to OM1 which was stented with drug eluding stent, RCA was 100% occluded with collaterals from left to right. -Continue asa, plavix for one year without interruption. Patient states understanding. (MIMI) -Continue beta margarita, juliocesar inhibitor, statin. (MIMI) -Close follow up as outpatient for remaining stenosis in circumflex. (MIMI) -Will schedule outpatient follow up for Thursday. (MIMI) -Recommend carrying nitroglycerin at all times and return to ER if chest pain returns. Patient instructed on nitroglycerin use. (MIMI) -Cardiology will sign off and follow up as outpatient. (MIMI) Patient seen and examined with Quinten Cano CNP, agree with above. Follow-up scheduled for next week. All questions answered. (2) Tobacco abuse Current Visit: Yes Status: Chronic Per cardiology: -Patient states he smokes approximately 1 PPD for 20 years. Patient states he had quit smoking, but had re-started in the last year. (MIMI) -Smoking cessation given. I spent 5 minutes reviewing smoking cessation with patient. (MIMI) -Patient declines nicotine patch. (MIMI) Discussion w patient/family: The assessment and plan as outlined above was discussed with the patient who expressed understanding and agreement. All questions were answered. Thank you for involving us in the care of your patient. Please call with any questions. Discussed and reviewed with . Subjective Principal diagnosis: Chest pain Interval history: Per cardiology: Patient with a known history of CAD with multiple PCIs in the past. (MIMI) Patient admitted with chest pain on 09/30/16. Patient's troponins noted to be 0.58, 3.97, and 8.73. Patient underwent subsequent cardiac catheterization on with successful stenting to mid LAD and OM1. Patient currently chest pain free. Patient denies difficulty walking or pain at access site. (MIMI) Objective Vital Signs, Last 4 Hours Temp Pulse Resp BP Pulse Ox 10/02/16 08:00 94 L 10/02/16 07:35 98.6 F 67 16 111/75 94 L General: Conversant, No Apparent Distress HEENT: Atraumatic, Normocephaly, Mucus Membranes Moist Neck: No JVD, Normal carotid pulses Cardiac: Reg Rate and Rhythm, Normal S1 and S2, No Murmur Lungs: Normal Breath Sounds, No Wheeze, Rales, Rhonchi Neuro: Alert and responsive, No focal deficits noted Abdomen: Soft, Non-Tender Skin: No rashes noted on visualized skin, Other (Right groin sight without ecchymosis or hemtoma.) Musculoskeletal: No Chest Wall Tenderness Extremities: No Clubbing, No Cyanosis, No Edema, Normal Pulses Results 10/02/16 05:31 10/02/16 05:31 Lab Results 10/02/16 10/02/16 05:31 05:31 WBC 8.2 Hgb 13.9 Hct 42.8 Plt Count 177 Sodium 135 L Potassium 4.1 Chloride 104 Carbon Dioxide 23 BUN 13 Creatinine 0.86 Glucose 92 Calcium 8.5 L - Imaging and Cardiology Chest Xray: report reviewed Cardiac cath: report reviewed - EKG Interpretation EKG results cardiology: personally reviewed, normal ECG, sinus rhythm, other ( 24 hour telemetry reviewed with nyla heart rate 64, sinus rhythm. Minimum heart rate 51. Maximum heart rate 104. Occasional PVCs and PACs noted.) Consult Discharge Plan - Plan Referrals: NO,PCP [Primary Care Provider] - Prescriptions: Clopidogrel Bisulfate [Plavix] 75 mg PO DAILY #90 tablet Lisinopril [Zestril] 2.5 mg PO DAILY #90 tablet Metoprolol [Lopressor] 12.5 mg PO BID #180 tablet Simvastatin [Zocor] 40 mg PO HS #90 tablet
--- NOTE | 2016-10-02 10:25 | Discharge Summary ---
<Grant Garcia - Last Filed: 10/02/16 10:21> Date of Encounter: 10/02/16 Time of Encounter: 10:21 - Discharge Diagnosis (1) Acute coronary syndrome Priority: Primary Status: Acute (2) DVT prophylaxis Priority: Secondary Status: Acute (3) Tobacco abuse Priority: Secondary Status: Chronic (4) CAD (coronary artery disease) Priority: Secondary Status: Chronic (5) GERD (gastroesophageal reflux disease) Priority: Secondary Status: Chronic - Discharge Medications Prescriptions: Clopidogrel Bisulfate [Plavix] 75 mg PO DAILY #90 tablet Lisinopril [Zestril] 2.5 mg PO DAILY #90 tablet Metoprolol [Lopressor] 12.5 mg PO BID #180 tablet Simvastatin [Zocor] 40 mg PO HS #90 tablet Home Medications: Aspirin [Lo-Dose Aspirin EC] 81 mg PO DAILY 07/07/16 [History] Clopidogrel Bisulfate [Plavix] 75 mg PO DAILY #90 tablet 10/01/16 [Rx] Lisinopril [Zestril] 2.5 mg PO DAILY #90 tablet 10/02/16 [Rx] Metoprolol [Lopressor] 12.5 mg PO BID #180 tablet 10/02/16 [Rx] Simvastatin [Zocor] 40 mg PO HS #90 tablet 10/02/16 [Rx] Allergies/Adverse Reactions: Allergies No Known Allergies Allergy (Verified 09/30/16 13:02) Procedures/tests Complete & Pending: Procedures Performed prior 72 hours Category Date Time Status CL Cardiac Catheterization [CL] Routine 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 10/01/16 10:36 Completed Date of admission: 10/01/16 08:56 Primary care physician: PCP NO Consults: 10/01/16 12:33 Consult to Cardiac Rehabilitation-Phase1 [CONS] Routine Comment: Reason for Consult: post op cath Call Completed: Yes 10/02/16 10:10 Consult to It Network Administrator [CONS] Routine Reason for SW Consult: patient states cannot afford medicaitons Discharging clinician: Grant Garcia - Patient Status Disposition: Home, Self-Care Condition: Fair Functional capacity at discharge: independent ambulation Overall status at discharge: patient is progressing back to baseline - Discharge Instructions Instructions: Chest Pain (DC) Follow Up With: Grant Garcia DO [Resident] - 10/07/16 1:30 pm (NEw PCP) Luis Pina, INTERNAL CONTROL MANAGER [Advanced Practice Nurse] - 10/06/16 2:00 pm - Diet and Activity Activity: as per physical therapy Diet: low fat, low cholesterol, low salt diet Hospital course: Mr. Huber is a 61 year old male - Time Spent with Patient Total time spent providing and/or coordinating discharge services: - Constitutional Vitals: Temp Pulse Resp BP Pulse Ox 98.6 F 67 16 111/75 94 L 10/02/16 07:35 10/02/16 07:35 10/02/16 07:35 10/02/16 07:35 10/02/16 08:00 General appearance: Present: cooperative, A&O X 3, pleasant, no acute distress, answers questions appropriately - Head Head exam: Present: atraumatic, normocephalic - Eye Eye exam: Present: PERRL, conjuntiva pink, sclera anicteric - Neck Neck exam general surgery: Present: supple, trachea midline. Absent: lymphadenopathy - Respiratory Respiratory exam: Present: CTAB. Absent: accessory muscle use, rales, rhonchi, wheezes - Cardiovascular Cardiovascular exam: Present: RRR, +S1, +S2. Absent: diastolic murmur, gallop, rubs, systolic murmur - GI/Abdominal GI/Abdominal exam: Present: normal bowel sounds, soft, no peritoneal signs. Absent: distended, tenderness - Extremities Exam Extremities exam: Present: warm, radial pulses palpable and symetrical. Absent : calf tenderness, cyanotic, pedal edema - Neurological Exam Neurological exam: Present: CN II-XII intact, oriented X3, no focal deficits. Absent: pronater drift, facial droop, speech deficit - Skin Skin exam: Present: dry, intact <Janes West - Last Filed: 10/02/16 13:39> - Discharge Diagnosis (1) NSTEMI (non-ST elevated myocardial infarction) Status: Acute (2) Acute coronary syndrome Status: Acute (3) CAD (coronary artery disease) Status: Chronic Qualifiers: Coronary Disease-Associated Artery/Lesion type: [place] artery [place] vs. 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 Huber is a 61 year old male - Time Spent with Patient Total time spent providing and/or coordinating discharge services: 38min - Constitutional Vitals: Temp Pulse Resp BP Pulse Ox 98.6 F 67 16 111/75 94 L 10/02/16 07:35 10/02/16 07:35 10/02/16 07:35 10/02/16 07:35 10/02/16 08:00 - Attending Attestation I examined this patient and my medical decision-making was reviewed with the Resident Physician on 10/02/16. I agree with the documented findings, disposition and treatment plan as described except to the extent set forth below. Mr. Huber feels OK today. No new issues overnight. Ready to go home. Exam Alert Comfortable Heart reg Lungs no wheeze Plan D/C home today. Follow up with PCP and cardiology Must take Plavix as prescribed.
--- NOTE | 2016-10-02 19:25 | Electrocardiograph Report ---
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
--- NOTE | 2016-10-02 19:38 | Electrocardiograph Report ---
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
--- NOTE | 2016-10-02 19:39 | Electrocardiograph Report ---
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
== END 2016-10-02 12:48 | disposition home or self-care (01) | DRG 247 ==
LOC: 2NENU 12:57 → EMEROO 12:57 → 2NENU 17:15
PROVIDERS: ADMIT Internal Medicine; ATTEND Internal Medicine

== ENCOUNTER 2021-12-18 08:29 | Inpatient (IN) ==
[2021-12-18] MEDS ORDERED: 0.9 % Sodium Chloride 1,000 ML ONE ×2 (08:52→10:45)
[2021-12-18] MEDS ORDERED: Heparin 1,000 UNITS/500 mL 500 ML ONE ×2 (10:45→11:42)
[2021-12-18] MEDS ORDERED: Nitroglycerin 1,000 MCG/5 ML VIAL IV ONE (10:45)
[2021-12-18] MEDS ORDERED: ISOVUE-370 200 ML INFUS..BTL ONE (10:45)
[2021-12-18] MEDS ORDERED: *HR* Heparin 10,000 UNIT/10 ML VIAL ONE ×2 (10:45→11:15)
[2021-12-18] MEDS ORDERED: *HR* FentaNYL (PF) 100 MCG/2 ML VIAL ONE (10:53)
[2021-12-18] MEDS ORDERED: *HR* Midazolam HCl 2 MG/2 ML VIAL ONE (10:53)
[2021-12-18] MEDS ORDERED: Protamine Sulfate 50 MG/5 ML VIAL IVP ONE (11:41)
[2021-12-18] MEDS ORDERED: Perflutren Lipid Microsphere 1.3 ML in 0.9 % Sodium Chloride 8.7 ML IVP PRN (14:02)
[2021-12-18 16:14] LABS: Basophils # 0.1 K/mcL (0.0-0.2); Basophils % 1.6 %; Eosinophils # 0.2 K/mcL (0.0-0.6); Eosinophils % 3.7 %; Hematocrit 45.6 % (37.5-50.1); Hemoglobin 15.4 g/dL (12.9-16.9); Immature Granulocytes % 0.3 % (0-4); Lymphocytes # 1.7 K/mcL (0.6-4.6); Lymphocytes % 26.7 %; Mean Corpuscular HGB Conc 33.8 g/dL (31.6-35.5); Mean Corpuscular Volume 88.7 fL (83.0-100.0); Mean Platelet Volume 10.4 fL (9.4-12.4); Monocytes # 0.5 K/mcL (0.0-1.3); Monocytes % 8.4 %; Neutrophils # 3.7 K/mcL (1.6-8.9); Platelet Count 167 K/mcL (140-400); Red Blood Count 5.14 M/mcL (4.19-5.50); Red Cell Distribution Width 13.3 % (11.5-14.5); Segmented Neutrophils % 59.3 %; White Blood Count 6.2 K/mcL (4.3-11.1)
[2021-12-18 16:25] LABS: Estimated Average Glucose 128 mg/dl; Hemoglobin A1C 6.1 %
[2021-12-18 16:26] LABS: INR 1.2; Prothrombin Time 13.6 Seconds (9.4-12.1)
[2021-12-18 16:29] LABS: Activated Partial Thrombo Time 57.3 Seconds (26.0-36.0)
[2021-12-18 16:32] LABS: Blood Urea Nitrogen 13 mg/dL (8-23); Calcium 8.8 mg/dL (8.6-10.3); Carbon Dioxide 26 mEq/L (23-29); Chloride 101 mEq/L (98-107); Cholesterol 255 mg/dL (< 200); Glucose 130 mg/dL (70-105); HDL Cholesterol 32 mg/dL (40-59); LDL Cholesterol,Calculated 174 mg/dL (< 100); Osmolality,Calculated 278 (280-300); Potassium 4.1 mEq/L (3.5-5.1); Sodium 133 mEq/L (136-145); Triglycerides 246 mg/dL (< 150)
[2021-12-18 17:30] LABS: BUN/Creatinine Ratio 12 (6-26); eGFR For African Americans > 60 (> 60); eGFR For Non-African Americans > 60 (> 60)
[2021-12-18] MEDS: Chlorhexidine Rinse 15 ML MOUTHWASH MM SCH (19:35)
[2021-12-19] MEDS ORDERED: Aspirin 81 MG TAB.CHEW PO ONE (06:00)
[2021-12-19 06:17] LABS: Hematocrit 45.1 % (37.5-50.1); Hemoglobin 15.2 g/dL (12.9-16.9)
[2021-12-19 06:19] LABS: Troponin I 0.16 ng/mL (< 0.04)
[2021-12-19] MEDS ORDERED: CeFAZolin Syr 2,000MG/20 ML 2,000 MG/20 ML SYRINGE IVPB ONE (09:00)
[2021-12-19 09:08] LABS: BUN/Creatinine Ratio 13 (6-26); Blood Urea Nitrogen 14 mg/dL (8-23); eGFR For African Americans > 60 (> 60); eGFR For Non-African Americans > 60 (> 60)
[2021-12-19] MEDS ORDERED: DOBUTamine 1,000 MG/250 ML BAG ONE (10:31)
[2021-12-19] MEDS ORDERED: *HR* FentaNYL (PF) 1,000 MCG/20 ML VIAL ONE (10:33)
[2021-12-19] MEDS ORDERED: *HR* Propofol 200 MG/20 ML VIAL IVP ONE ×2 (10:33→22:37)
[2021-12-19] MEDS ORDERED: *HR* Midazolam HCl 5 MG/5 ML VIAL IVP ONE ×2 (10:33→22:37)
[2021-12-19] MEDS ORDERED: *HR* Rocuronium Bromide 50 MG/5 ML VIAL ONE ×2 (10:34→13:26)
[2021-12-19] MEDS ORDERED: Lidocaine 2% Syringe 100 MG/5 ML ONE (10:36)
[2021-12-19] MEDS ORDERED: Tranexamic Acid 1,000 MG/10 ML VIAL ONE (10:36)
[2021-12-19] MEDS ORDERED: Famotidine 20 MG/2 ML VIAL ONE (10:36)
[2021-12-19] MEDS ORDERED: *HR* Magnesium Sulfate 1 GM/2 ML VIAL ONE (10:38)
[2021-12-19] MEDS: Chlorhexidine Rinse 15 ML MOUTHWASH MM SCH ×2 (10:41→20:22)
[2021-12-19] MEDS ORDERED: Papaverine 60 MG/2 ML VIAL IVP ONE (11:42)
[2021-12-19] MEDS ORDERED: del Nido Cardioplegia Solution PF ONE ×2 (11:50)
[2021-12-19] MEDS ORDERED: Buckersberg's Blood Cardioplegia PF ONE (11:50)
[2021-12-19] MEDS ORDERED: Heparin 15,000 UNIT in 0.9 % Sodium Chloride 500 ML IV ONE (11:50)
[2021-12-19] MEDS ORDERED: Norepinephrine 4 MG in 0.9 % Sodium Chloride 250 ML IVC PRN (11:50)
[2021-12-19] MEDS ORDERED: Lidocaine -MPF 2% 2 ML VIAL ONE (12:12)
[2021-12-19 12:55] LABS: ABG Base Excess -1 mEq/L (-2 to 3); ABG Chloride 103 mEq/L (98-107); ABG Glucose 92 mg/dL (60-95); ABG HCO3 25 mEq/L (21-27); ABG Ionized Calcium 1.18 mmol/L (1.15-1.35); ABG Oxygen Saturation 100 % (95-98); ABG PCO2 46 mmHg (35-45); ABG PH 7.34 pH Units (7.32-7.45); ABG PO2 435 mmHg (85-104); ABG TCO2 27 mEq/L (20-26)
[2021-12-19] MEDS ORDERED: *HR* FentaNYL (PF) 250 MCG/5 ML VIAL ONE (15:13)
[2021-12-19 15:14] LABS: ABG Base Excess -2 mEq/L (-2 to 3); ABG Chloride 102 mEq/L (98-107); ABG Glucose 117 mg/dL (60-95); ABG HCO3 25 mEq/L (21-27); ABG Ionized Calcium 1.18 mmol/L (1.15-1.35); ABG Oxygen Saturation 95 % (95-98); ABG PCO2 50 mmHg (35-45); ABG PH 7.31 pH Units (7.32-7.45); ABG PO2 84 mmHg (85-104); ABG TCO2 27 mEq/L (20-26)
[2021-12-19] MEDS ORDERED: Naloxone 0.4 MG/ML INJ IVP PRN (15:15)
[2021-12-19] MEDS ORDERED: DOBUTamine 1,000 MG/250 ML BAG IVC SCH (15:15)
[2021-12-19] MEDS ORDERED: *HR* Dextrose 50 % in Water (Syg) 50 ML SYRINGE IVP PRN (15:15)
[2021-12-19] MEDS ORDERED: Calcium Gluconate 1gm/50mL 1 GM/50 ML BAG IVPB PRN (15:15)
[2021-12-19] MEDS ORDERED: Acetaminophen 325 MG TABLET PO PRN (15:15)
[2021-12-19] MEDS ORDERED: Ondansetron 4 MG/2 ML VIAL IVP PRN (15:15)
[2021-12-19] MEDS ORDERED: Potassium Chloride 40 MEQ/200 ML BAG IVPB PRN (15:15)
[2021-12-19] MEDS ORDERED: Insulin Regular, Human 100 UNIT/ML IV PRN (15:15)
[2021-12-19] MEDS ORDERED: *HR* FentaNYL (PF) 100 MCG/2 ML VIAL IVP PRN (15:15)
[2021-12-19] MEDS ORDERED: Calcium Gluconate 1,000 MG/10 ML VIAL ONE (16:48)
[2021-12-19] MEDS ORDERED: Protamine Sulfate 250 MG/25 ML VIAL IVP ONE (16:48)
[2021-12-19 17:06] LABS: ABG Base Excess -2 mEq/L (-2 to 3); ABG Chloride 104 mEq/L (98-107); ABG Glucose 116 mg/dL (60-95); ABG HCO3 23 mEq/L (21-27); ABG Ionized Calcium 1.21 mmol/L (1.15-1.35); ABG Oxygen Saturation 100 % (95-98); ABG PCO2 39 mmHg (35-45); ABG PH 7.38 pH Units (7.32-7.45); ABG PO2 189 mmHg (85-104); ABG TCO2 24 mEq/L (20-26)
[2021-12-19] MEDS ORDERED: Sugammadex Sodium 200 MG/2 ML VIAL IV ONE (17:13)
[2021-12-19 17:58] LABS: ABG Base Excess -2 mEq/L (-2 to 3); ABG HCO3 27 mEq/L (21-27); ABG Oxygen Saturation 100 % (95-98); ABG PCO2 63 mmHg (35-45); ABG PH 7.24 pH Units (7.32-7.45); ABG PO2 229 mmHg (85-104); ABG TCO2 29 mEq/L (20-26); Blood Gas Modality AVAPS; Blood Gas VT 500 cc
[2021-12-19] MEDS ORDERED: Ketorolac 30 MG/ML VIAL IVP SCH (18:00)
[2021-12-19 18:08] LABS: Basophils # 0.1 K/mcL (0.0-0.2); Basophils % 0.4 %; Eosinophils # 0.1 K/mcL (0.0-0.6); Eosinophils % 0.3 %; Hematocrit 36.4 % (37.5-50.1); Immature Granulocytes % 0.7 % (0-4); Lymphocytes # 1.3 K/mcL (0.6-4.6); Lymphocytes % 8.2 %; Mean Corpuscular HGB Conc 33.5 g/dL (31.6-35.5); Mean Corpuscular Hemoglobin 30.7 pg (28.0-33.3); Mean Corpuscular Volume 91.5 fL (83.0-100.0); Mean Platelet Volume 10.3 fL (9.4-12.4); Monocytes # 0.4 K/mcL (0.0-1.3); Monocytes % 2.6 %; Neutrophils # 13.7 K/mcL (1.6-8.9); Platelet Count 152 K/mcL (140-400); Red Blood Count 3.98 M/mcL (4.19-5.50); Red Cell Distribution Width 13.2 % (11.5-14.5); Segmented Neutrophils % 87.8 %
[2021-12-19 18:09] LABS: Hemoglobin 12.2 g/dL (12.9-16.9); White Blood Count 15.6 K/mcL (4.3-11.1)
[2021-12-19] MEDS ORDERED: Artificial Tears SOLN 15 ML BOTTLE BOTH EYES PRN (18:16)
[2021-12-19 18:25] LABS: Activated Partial Thrombo Time 49.9 Seconds (26.0-36.0)
[2021-12-19 18:31] LABS: INR 1.3; Prothrombin Time 14.6 Seconds (9.4-12.1)
[2021-12-19] MEDS: Norepinephrine 4 MG/254 ML IV.SOLN IVC SCH (18:58)
[2021-12-19] MEDS: Pantoprazole 40 MG VIAL IVP SCH (18:58)
[2021-12-19] MEDS: niCARdipine 20 MG/200 ML MLS IVC SCH ×3 (19:00→23:14)
[2021-12-19] MEDS: Albumin Human 5% 12.5 GM/250 ML IV.SOLN IVPB PRN ×2 (19:13→19:25)
[2021-12-19 19:16] LABS: BUN/Creatinine Ratio 15 (6-26); Blood Urea Nitrogen 13 mg/dL (8-23); Calcium 8.5 mg/dL (8.6-10.3); Carbon Dioxide 25 mEq/L (23-29); Chloride 103 mEq/L (98-107); Glucose 150 mg/dL (70-105); Magnesium 1.8 mg/dL (1.6-2.6); Osmolality,Calculated 279 (280-300); Potassium 4.6 mEq/L (3.5-5.1); Sodium 133 mEq/L (136-145); eGFR For African Americans > 60 (> 60); eGFR For Non-African Americans > 60 (> 60)
[2021-12-19] MEDS: Artificial Tears SOLN 15 ML BOTTLE BOTH EYES SCH ×2 (20:21→23:14)
[2021-12-19] MEDS: FentaNYL (PF) 1,000 MCG/100 ML IV.SOLN IVC SCH (20:47)
[2021-12-19] MEDS ORDERED: Aspirin Enteric Coated 81 MG Tablet PO SCH (21:00)
[2021-12-19] MEDS: CeFAZolin 2 GM/120 ML BAG IVPB SCH (21:37)
[2021-12-20 00:30] LABS: ABG Base Excess -1 mEq/L (-2 to 3); ABG HCO3 24 mEq/L (21-27); ABG Oxygen Saturation 100 % (95-98); ABG PCO2 43 mmHg (35-45); ABG PH 7.36 pH Units (7.32-7.45); ABG PO2 192 mmHg (85-104); ABG TCO2 26 mEq/L (20-26); Blood Gas Modality ASSIST CONTROL; Blood Gas VT 450 cc
[2021-12-20] MEDS: niCARdipine 20 MG/200 ML MLS IVC SCH ×5 (03:28→19:39)
[2021-12-20] MEDS: Artificial Tears SOLN 15 ML BOTTLE BOTH EYES SCH ×3 (03:28→12:08)
[2021-12-20] MEDS: Norepinephrine 4 MG/254 ML IV.SOLN IVC SCH (03:29)
[2021-12-20 03:57] LABS: Basophils % 0.2 %; Hemoglobin 13.4 g/dL (12.9-16.9); Immature Granulocytes % 0.5 % (0-4); Lymphocytes % 7.9 %; Mean Corpuscular HGB Conc 33.5 g/dL (31.6-35.5); Mean Corpuscular Volume 89.5 fL (83.0-100.0); Mean Platelet Volume 10.9 fL (9.4-12.4); Monocytes # 0.8 K/mcL (0.0-1.3); Monocytes % 6.5 %; Neutrophils # 10.5 K/mcL (1.6-8.9); Platelet Count 174 K/mcL (140-400); Red Blood Count 4.47 M/mcL (4.19-5.50); Red Cell Distribution Width 13.2 % (11.5-14.5); Segmented Neutrophils % 84.9 %; White Blood Count 12.4 K/mcL (4.3-11.1)
[2021-12-20 03:59] LABS: ABG Base Excess -1 mEq/L (-2 to 3); ABG HCO3 23 mEq/L (21-27); ABG Oxygen Saturation 96 % (95-98); ABG PCO2 37 mmHg (35-45); ABG PH 7.42 pH Units (7.32-7.45); ABG PO2 78 mmHg (85-104); ABG TCO2 25 mEq/L (20-26); Blood Gas Modality ASSIST CONTROL; Blood Gas VT 450 cc
[2021-12-20 04:10] LABS: INR 1.1; Prothrombin Time 12.8 Seconds (9.4-12.1)
[2021-12-20 04:11] LABS: Activated Partial Thrombo Time 27.7 Seconds (26.0-36.0)
[2021-12-20 04:19] LABS: BUN/Creatinine Ratio 16 (6-26); Blood Urea Nitrogen 14 mg/dL (8-23); Calcium 8.4 mg/dL (8.6-10.3); Carbon Dioxide 26 mEq/L (23-29); Chloride 101 mEq/L (98-107); Glucose 118 mg/dL (70-105); Osmolality,Calculated 276 (280-300); Potassium 4.4 mEq/L (3.5-5.1); Sodium 132 mEq/L (136-145); eGFR For African Americans > 60 (> 60); eGFR For Non-African Americans > 60 (> 60)
[2021-12-20 04:37] LABS: ABG Base Excess 0 mEq/L (-2 to 3); ABG HCO3 24 mEq/L (21-27); ABG Oxygen Saturation 97 % (95-98); ABG PCO2 36 mmHg (35-45); ABG PH 7.43 pH Units (7.32-7.45); ABG PO2 86 mmHg (85-104); ABG TCO2 25 mEq/L (20-26); Blood Gas VT 450 cc
[2021-12-20] MEDS: CeFAZolin 2 GM/120 ML BAG IVPB SCH ×3 (04:47→21:19)
[2021-12-20] MEDS ORDERED: *HR* Enoxaparin 40 MG/0.4 ML SYRINGE SQ SCH (06:00)
[2021-12-20] MEDS: Pantoprazole 40 MG VIAL IVP SCH (07:30)
[2021-12-20] MEDS: Chlorhexidine Rinse 15 ML MOUTHWASH MM SCH ×3 (07:53→20:02)
[2021-12-20] MEDS: *HR* OxyCODONE/APAP 5/325 TABLET PO PRN ×4 (08:35→19:38)
[2021-12-20] MEDS ORDERED: Docusate Oral Soln 100 MG/10 ML UDC GTUBE SCH (09:00)
[2021-12-20] MEDS ORDERED: Aspirin 81 MG TAB.CHEW PO SCH (09:00)
[2021-12-20 12:13] LABS: ABG Base Excess 0 mEq/L (-2 to 3); ABG HCO3 24 mEq/L (21-27); ABG Oxygen Saturation 93 % (95-98); ABG PCO2 38 mmHg (35-45); ABG PH 7.41 pH Units (7.32-7.45); ABG PO2 65 mmHg (85-104); ABG TCO2 25 mEq/L (20-26)
[2021-12-20] MEDS ORDERED: DOBUTamine 1,000 MG/250 ML BAG IVC SCH (17:00)
[2021-12-20] MEDS ORDERED: Ondansetron 4 MG/2 ML VIAL IVP PRN (17:00)
[2021-12-20] MEDS ORDERED: Acetaminophen 325 MG TABLET PO PRN (17:00)
[2021-12-20] MEDS ORDERED: Dextrose 4 GM Chewable Tablets PO PRN ×2 (17:00)
[2021-12-20] MEDS ORDERED: *HR* Dextrose 50 % in Water (Syg) 50 ML SYRINGE IVP PRN (17:00)
[2021-12-20] MEDS ORDERED: Albumin Human 5% 12.5 GM/250 ML IV.SOLN IVPB PRN (17:00)
[2021-12-20] MEDS ORDERED: Naloxone 0.4 MG/ML INJ IVP PRN (17:00)
[2021-12-20] MEDS ORDERED: D5% in Water 1,000 ML IVC PRN (17:00)
[2021-12-20] MEDS: Insulin LISPRO 300 UNITS/3 ML VIAL SUBQ SCH ×2 (17:14→20:02)
[2021-12-20] MEDS ORDERED: *HR* OxyCODONE Immed Rel 5 MG TABLET PO PRN (22:36)
[2021-12-20] MEDS ORDERED: *HR* HYDROcodone/Acet 5/325 mg TABLET PO PRN (22:36)
[2021-12-20] MEDS ORDERED: *HR* Metoprolol 5 MG/5 ML VIAL IVP ONE ×2 (22:52→23:37)
[2021-12-21] MEDS ORDERED: Amiodarone Premix 360 MG/200 ML BAG IVC ONE (00:03)
[2021-12-21] MEDS ORDERED: IBUTILIDE IVP ONE (00:03)
[2021-12-21] MEDS ORDERED: Amiodarone Premix 150 MG/100 ML BAG IVPB ONE ×2 (00:16→00:30)
[2021-12-21 01:55] LABS: Basophils % 0.3 %; Hematocrit 40.2 % (37.5-50.1); Hemoglobin 13.8 g/dL (12.9-16.9); Immature Granulocytes % 0.4 % (0-4); Lymphocytes # 1.5 K/mcL (0.6-4.6); Lymphocytes % 11.5 %; Mean Corpuscular HGB Conc 34.3 g/dL (31.6-35.5); Mean Corpuscular Hemoglobin 30.5 pg (28.0-33.3); Mean Corpuscular Volume 88.7 fL (83.0-100.0); Mean Platelet Volume 10.8 fL (9.4-12.4); Monocytes # 1.1 K/mcL (0.0-1.3); Monocytes % 8.3 %; Neutrophils # 10.6 K/mcL (1.6-8.9); Platelet Count 163 K/mcL (140-400); Red Blood Count 4.53 M/mcL (4.19-5.50); Red Cell Distribution Width 13.3 % (11.5-14.5); Segmented Neutrophils % 79.5 %; White Blood Count 13.4 K/mcL (4.3-11.1)
[2021-12-21 02:13] LABS: BUN/Creatinine Ratio 22 (6-26); Blood Urea Nitrogen 19 mg/dL (8-23); Calcium 8.3 mg/dL (8.6-10.3); Carbon Dioxide 22 mEq/L (23-29); Chloride 100 mEq/L (98-107); Glucose 138 mg/dL (70-105); Osmolality,Calculated 276 (280-300); Potassium 4.1 mEq/L (3.5-5.1); Sodium 131 mEq/L (136-145); eGFR For African Americans > 60 (> 60); eGFR For Non-African Americans > 60 (> 60)
[2021-12-21] MEDS ORDERED: *HR* Heparin 5,000 UNIT/ML VIAL IVP PRN ×2 (02:36)
[2021-12-21] MEDS ORDERED: Albumin 25% 25gram/100mL 25 GM/100 ML IV.SOLN IVPB ONE (02:36)
[2021-12-21] MEDS ORDERED: *HR* Heparin 5,000 UNIT/ML VIAL IVP ONE (02:36)
[2021-12-21] MEDS: niCARdipine 20 MG/200 ML MLS IVC SCH ×3 (02:41→19:12)
[2021-12-21] MEDS ORDERED: Heparin 25,000UNIT/250ML 1/2NS 25,000 UNIT/250 ML IV.SOLN IVC SCH (02:45)
[2021-12-21 03:35] LABS: Heparin anti-factor XA UFH < 0.04 IU/mL (0.30-0.70)
[2021-12-21 03:36] LABS: INR 1.2; Prothrombin Time 12.9 Seconds (9.4-12.1)
[2021-12-21] MEDS ORDERED: Furosemide 20 MG/2 ML VIAL IVP ONE (04:30)
[2021-12-21] MEDS ORDERED: *HR* Enoxaparin 40 MG/0.4 ML SYRINGE SQ SCH (06:00)
[2021-12-21] MEDS ORDERED: Amiodarone Premix 360 MG/200 ML BAG IVC SCH (06:04)
[2021-12-21] MEDS: CeFAZolin 2 GM/120 ML BAG IVPB SCH ×2 (06:45→19:12)
[2021-12-21] MEDS: Insulin LISPRO 300 UNITS/3 ML VIAL SUBQ SCH ×4 (08:59→20:29)
[2021-12-21] MEDS: Aspirin 81 MG TAB.CHEW PO SCH (09:13)
[2021-12-21] MEDS: *HR* OxyCODONE/APAP 5/325 TABLET PO PRN (09:13)
[2021-12-21] MEDS: Chlorhexidine Rinse 15 ML MOUTHWASH MM SCH ×2 (09:13→20:34)
[2021-12-21] MEDS: Ketorolac 30 MG/ML VIAL IVP SCH ×2 (12:53→20:28)
[2021-12-21] MEDS: Gabapentin 300 MG CAPSULE PO SCH ×3 (12:54→20:33)
[2021-12-21] MEDS: *HR* Amiodarone 200 MG TABLET PO SCH ×2 (12:54→20:33)
[2021-12-21] MEDS ORDERED: *HR* Heparin 5,000 UNIT/ML VIAL SQ SCH (14:00)
[2021-12-21] MEDS: FentaNYL (PF) 1,000 MCG/100 ML IV.SOLN IVC SCH (19:11)
[2021-12-22] MEDS: Ketorolac 30 MG/ML VIAL IVP SCH ×3 (00:03→13:25)
[2021-12-22 02:40] LABS: White Blood Count 10.6 K/mcL (4.3-11.1)
[2021-12-22 02:41] LABS: Basophils # 0.1 K/mcL (0.0-0.2); Basophils % 0.9 %; Eosinophils # 0.1 K/mcL (0.0-0.6); Eosinophils % 1.2 %; Hematocrit 33.7 % (37.5-50.1); Hemoglobin 11.2 g/dL (12.9-16.9); Immature Granulocytes % 0.3 % (0-4); Lymphocytes # 2.1 K/mcL (0.6-4.6); Lymphocytes % 19.6 %; Mean Corpuscular HGB Conc 33.2 g/dL (31.6-35.5); Mean Corpuscular Hemoglobin 29.9 pg (28.0-33.3); Mean Corpuscular Volume 89.9 fL (83.0-100.0); Mean Platelet Volume 11.1 fL (9.4-12.4); Monocytes # 0.9 K/mcL (0.0-1.3); Monocytes % 8.6 %; Neutrophils # 7.3 K/mcL (1.6-8.9); Platelet Count 152 K/mcL (140-400); Red Blood Count 3.75 M/mcL (4.19-5.50); Red Cell Distribution Width 13.3 % (11.5-14.5); Segmented Neutrophils % 69.4 %
[2021-12-22 02:59] LABS: BUN/Creatinine Ratio 29 (6-26); Blood Urea Nitrogen 28 mg/dL (8-23); Calcium 8.1 mg/dL (8.6-10.3); Carbon Dioxide 24 mEq/L (23-29); Chloride 96 mEq/L (98-107); Glucose 102 mg/dL (70-105); Magnesium 2.2 mg/dL (1.6-2.6); Osmolality,Calculated 272 (280-300); Potassium 3.8 mEq/L (3.5-5.1); Sodium 128 mEq/L (136-145); eGFR For African Americans > 60 (> 60); eGFR For Non-African Americans > 60 (> 60)
[2021-12-22] MEDS ORDERED: *HR* Enoxaparin 40 MG/0.4 ML SYRINGE SQ SCH (06:00)
[2021-12-22] MEDS: Insulin LISPRO 300 UNITS/3 ML VIAL SUBQ SCH ×4 (08:43→20:39)
[2021-12-22] MEDS: Gabapentin 300 MG CAPSULE PO SCH ×3 (08:59→20:52)
[2021-12-22] MEDS: *HR* Amiodarone 200 MG TABLET PO SCH (08:59)
[2021-12-22] MEDS: Aspirin 81 MG TAB.CHEW PO SCH (08:59)
[2021-12-22] MEDS: Chlorhexidine Rinse 15 ML MOUTHWASH MM SCH ×2 (08:59→20:52)
[2021-12-22] MEDS ORDERED: *HR* Metoprolol 5 MG/5 ML VIAL IVP PRN (09:42)
[2021-12-22] MEDS ORDERED: *HR* Heparin 5,000 UNIT/ML VIAL IVP PRN ×2 (11:05)
[2021-12-22] MEDS ORDERED: Amiodarone Premix 150 MG/100 ML BAG IVPB ONE (11:05)
[2021-12-22] MEDS ORDERED: Amiodarone Premix 360 MG/200 ML BAG IVC ONE (11:05)
[2021-12-22] MEDS: Heparin 25,000UNIT/250ML 1/2NS 25,000 UNIT/250 ML IV.SOLN IVC SCH (13:26)
[2021-12-22] MEDS: Amiodarone Premix 360 MG/200 ML BAG IVC SCH (22:33)
[2021-12-23] MEDS: *HR* OxyCODONE/APAP 5/325 TABLET PO PRN ×2 (02:51→14:18)
[2021-12-23 05:21] LABS: Basophils # 0.1 K/mcL (0.0-0.2); Eosinophils # 0.4 K/mcL (0.0-0.6); Eosinophils % 4.1 %; Hematocrit 31.3 % (37.5-50.1); Hemoglobin 10.8 g/dL (12.9-16.9); Immature Granulocytes % 0.6 % (0-4); Lymphocytes # 2.5 K/mcL (0.6-4.6); Mean Corpuscular HGB Conc 34.5 g/dL (31.6-35.5); Mean Corpuscular Hemoglobin 30.2 pg (28.0-33.3); Mean Corpuscular Volume 87.4 fL (83.0-100.0); Mean Platelet Volume 11.1 fL (9.4-12.4); Monocytes # 0.6 K/mcL (0.0-1.3); Monocytes % 6.5 %; Neutrophils # 5.3 K/mcL (1.6-8.9); Platelet Count 180 K/mcL (140-400); Red Blood Count 3.58 M/mcL (4.19-5.50); Red Cell Distribution Width 13.1 % (11.5-14.5); Segmented Neutrophils % 59.8 %; White Blood Count 8.9 K/mcL (4.3-11.1)
[2021-12-23 05:36] LABS: BUN/Creatinine Ratio 25 (6-26); Blood Urea Nitrogen 25 mg/dL (8-23); Calcium 7.8 mg/dL (8.6-10.3); Carbon Dioxide 25 mEq/L (23-29); Chloride 96 mEq/L (98-107); Glucose 148 mg/dL (70-105); Magnesium 2.1 mg/dL (1.6-2.6); Osmolality,Calculated 271 (280-300); Potassium 4.2 mEq/L (3.5-5.1); Sodium 127 mEq/L (136-145); eGFR For African Americans > 60 (> 60); eGFR For Non-African Americans > 60 (> 60)
[2021-12-23 05:39] LABS: Albumin 3.2 g/dL (3.5-5.7); Albumin/Globulin Ratio 1.5 (1.1-2.2); Bilirubin,Direct 0.2 mg/dL (0.0-0.2); Bilirubin,Indirect 0.8 mg/dL (0.0-1.0); Globulin 2.1 g/dL (2.4-3.5); Total Protein 5.3 g/dL (6.4-8.9)
[2021-12-23] MEDS ORDERED: Calcium Gluconate 1gm/50mL 1 GM/50 ML BAG IVPB ONE (07:29)
[2021-12-23] MEDS: Gabapentin 300 MG CAPSULE PO SCH ×3 (08:07→20:44)
[2021-12-23] MEDS: Aspirin 81 MG TAB.CHEW PO SCH (08:08)
[2021-12-23] MEDS: Chlorhexidine Rinse 15 ML MOUTHWASH MM SCH ×2 (08:08→20:44)
[2021-12-23] MEDS: Insulin LISPRO 300 UNITS/3 ML VIAL SUBQ SCH ×4 (08:10→20:46)
[2021-12-23] MEDS: Heparin 25,000UNIT/250ML 1/2NS 25,000 UNIT/250 ML IV.SOLN IVC SCH (08:27)
[2021-12-23] MEDS: Amiodarone Premix 360 MG/200 ML BAG IVC SCH (10:03)
[2021-12-23] MEDS: *HR* Amiodarone 200 MG TABLET PO SCH (20:44)
[2021-12-24] MEDS: Heparin 25,000UNIT/250ML 1/2NS 25,000 UNIT/250 ML IV.SOLN IVC SCH (03:44)
[2021-12-24 05:50] LABS: Basophils # 0.1 K/mcL (0.0-0.2); Basophils % 1.1 %; Eosinophils # 0.4 K/mcL (0.0-0.6); Eosinophils % 5.4 %; Hematocrit 33.1 % (37.5-50.1); Hemoglobin 11.1 g/dL (12.9-16.9); Immature Granulocytes % 0.5 % (0-4); Lymphocytes % 26.4 %; Mean Corpuscular HGB Conc 33.5 g/dL (31.6-35.5); Mean Corpuscular Volume 89.5 fL (83.0-100.0); Mean Platelet Volume 10.6 fL (9.4-12.4); Monocytes # 0.6 K/mcL (0.0-1.3); Monocytes % 7.9 %; Neutrophils # 4.5 K/mcL (1.6-8.9); Platelet Count 215 K/mcL (140-400); Red Cell Distribution Width 13.2 % (11.5-14.5); Segmented Neutrophils % 58.7 %; White Blood Count 7.6 K/mcL (4.3-11.1)
[2021-12-24 06:19] LABS: BUN/Creatinine Ratio 17 (6-26); Blood Urea Nitrogen 16 mg/dL (8-23); Carbon Dioxide 24 mEq/L (23-29); Chloride 100 mEq/L (98-107); Glucose 142 mg/dL (70-105); Osmolality,Calculated 278 (280-300); Potassium 4.1 mEq/L (3.5-5.1); Sodium 132 mEq/L (136-145); eGFR For African Americans > 60 (> 60); eGFR For Non-African Americans > 60 (> 60)
[2021-12-24] MEDS: Insulin LISPRO 300 UNITS/3 ML VIAL SUBQ SCH ×3 (07:53→16:36)
[2021-12-24] MEDS: Aspirin 81 MG TAB.CHEW PO SCH (08:28)
[2021-12-24] MEDS: *HR* Amiodarone 200 MG TABLET PO SCH (08:28)
[2021-12-24] MEDS: Chlorhexidine Rinse 15 ML MOUTHWASH MM SCH (08:28)
[2021-12-24] MEDS: Gabapentin 300 MG CAPSULE PO SCH ×2 (08:28→16:36)
[2021-12-24 10:22] VITALS: BP 107/61; PULSE 70; TEMP 98.4
[2021-12-24 11:08] VITALS: O2SAT 93
[2021-12-24] MEDS ORDERED: *HR* Warfarin 3 MG TABLET PO ONE (18:00)
[2021-12-25] MEDS ORDERED: *HR* Amiodarone 200 MG TABLET PO SCH (09:00)
== END 2021-12-24 17:15 | disposition home or self-care (01) | DRG 233 ==
LOC: INVDIALAB 08:29 → 3BNU 13:12 → SUATTDRO 12-19 09:00 → 3BNU 12-19 09:00 → ICNU 12-19 12:16 → 2NNU 12-20 17:02
PROVIDERS: ADMIT Internal Medicine; ATTEND General Practice